=== PATIENT | male | born 1985 | race Caucasian/White ===

== ENCOUNTER 2024-08-06 20:12 | Emergency (ER) | payer OTHER, SELFPAY ==
[2024-08-06] VITALS (7 sets, daily range): BP systolic 124–174; BP diastolic 76–102; PULSE 73–109; RESP 13–26; TEMP 36.9; O2SAT 94–99; BMI 36.0
--- NOTE | 2024-08-06 20:29 | RAD_ITS ---
EXAM: EXAM DATE: 08/06/2024 8:49 pm PROCEDURE: TIBIA FIBULA 2 VIEWS CLINICAL HISTORY: ANKLE INJURY COMPARISON: None TECHNIQUE: Four views of the left tibia and fibula. FINDINGS: There is a complex fracture/dislocation of the left ankle. The distal tibia is medially displaced 2.2 cm from the talus with an acute fracture of the medial malleolus and separation of the distal tibiofibular syndesmosis. There is a highly comminuted fracture at the distal fibular shaft with a slight angular displacement, apex medial. There is no proximal tibial or fibular fracture. Soft tissue deformity and edema is present about the ankle. RAD/Tibia & Fibula 2 Views IMPRESSION: Complex fracture/dislocation of the left ankle with significant displacement, a s described above. Reading Location: [facility]
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
[2024-08-06] MEDS: Ondansetron 4 MG/2 ML Vial IV (20:54)
[2024-08-06] MEDS: morphine 8 MG/ML Syringe 6 MG IV ×4 (20:55→22:42)
[2024-08-06 21:01] LABS: Absolute Lymphocyte Count 2.92 X10^3/uL (0.83-4.51); Absolute Neutrophil Count 7.9 X10^3/uL (2.0-7.7); Basophil# 0.06 X10^3/uL; Basophil% 0.5 % (0-1); Eosinophil# 0.26 X10^3/uL; Eosinophils% 2.2 % (0-5); Hematocrit 43.7 % (40-54); Hemoglobin 15.1 g/dL (13.0-16.5); Lymphocyte # 2.92 X10^3/ul (0.83-4.51); Lymphocyte % 24.6 % (19-41); Mean Corp Hgb Conc 34.6 g/dL (32-36); Mean Corpuscular Hgb 29.5 pg (27.0-32.0); Mean Corpuscular Volume 85.5 fL (80-94); Mean Platelet Vol. 9.2 fl (6.2-12.0); Monocyte# 0.73 X10^3/uL; Monocyte% 6.2 % (0-10); NRBC Flagged by Analyzer 0 % (0-5); Neutrophil # 7.87 X10^3/uL (2.7-7.7); Neutrophil % 66.3 % (47-70); Platelet Count 256 K/mm3 (150-450); RBC Distribution Width SD 40.5 fl (35.1-43.9); Red Blood Count 5.11 M/mm3 (4.6-6.2); White Blood Count 11.9 K/mm3 (4.4-11.0)
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
--- NOTE | 2024-08-06 21:35 | RAD_ITS ---
PROCEDURE: ANKLE 2 VIEWS 08/06/2024 REASON FOR EXAM: FRACTURE POST REDUCTION TECHNIQUE: 2 views of the left ankle COMPARISON: 08/06/2024 FINDINGS: Improved alignment of the fracture/dislocation of the left ankle. Interval placement of a splint. RAD/Ankle 2 Views IMPRESSION: As above. Reading Location: [facility]
[2024-08-06 21:39] LABS: Anion Gap 15 (5-15); BUN 13 mg/dL (4-19); BUN/Creat Ratio 10.3 RATIO (10-20); Calcium,Total 9.1 mg/dL (7.6-11.0); Carbon Dioxide 21.7 mmol/L (21.0-32.0); Chloride 106 mmol/L (98-108); EST Glomerular Filtration Rate 73 (>60); Estimated Creatinine Clearance 98.29 ml/min (50-250); Glucose 157 mg/dL (70-99); Potassium 3.6 mmol/L (3.3-5.1); Sodium Level 142 mmol/L (133-145)
[2024-08-06] MEDS: Propofol 200 MG/20 ML Vial 60 MG IV (21:45)
[2024-08-06] MEDS: Propofol 200 MG/20 ML Vial 60 MG IV BOLUS (21:45)
== END 2024-08-06 23:12 | disposition home or self-care (01) ==
PROVIDERS: Emergency Provider Emergency Medicine; Visit Provider Emergency Medicine
DX: S82.52XA Displaced fracture of medial malleolus of left tibia, initial encounter for closed fracture (principal); S09.90XA Unspecified injury of head, initial encounter; S00.83XA Contusion of other part of head, initial encounter; S82.452A Displaced comminuted fracture of shaft of left fibula, initial encounter for closed fracture; V86.09XA Driver of other special all-terrain or other off-road motor vehicle injured in traffic accident, initial encounter
CPT/HCPCS: 27840; 70450; 73590; 73600; 73700; 80048; 85025; 96374; 96375; 96376; 99152; 99283; A4216; J2405

== ENCOUNTER 2024-08-12 06:02 | Day surgery (SDC) | payer OTHER, SELFPAY ==
[2024-08-12] VITALS (9 sets, daily range): BP systolic 111–152; BP diastolic 65–97; PULSE 92–109; RESP 16–20; TEMP 36.1–36.6; O2SAT 92–100; BMI 34.7
[2024-08-12] MEDS: 0.9% Normal Saline (1000mL) 1,000 ML 15 ML IV (06:34)
--- NOTE | 2024-08-12 06:42 | PRE.ANES_ITS ---
ASA Classification* ASA Classification ASA Classification: 2 Assessment & Plan Anesthesia* Anesthesia Assessment Anesthesia Assessment: Discussed sedation and/or anesthesia options, risks, benefits, and alternatives with patient/parents/legal guardian/POA. Questions invited. The patient/parents/legal guardian/POA seems to understand and agrees to proceed with anesthesia plan. Reviewed the physical assessment, medical history, allergy history and patient home medications list prior to surgery/procedure/anesthetic and documented any changes. Performed airway and anesthesia risk assessments. Anesthesia Type Anesthesia Type: General and Block (Patient consented for popliteal and adductor blocks.) History Source History Obtained from:: Patient and Chart Anesthesia Focused Assessment* Temperature: 97.1 F Pulse Rate: 93 Blood Pressure: 146/97 Respiratory Rate: 20 Pulse Ox: 98 Oxygen Delivery Method: Room Air Airway Assessment Mouth opens: >3 cm Mallampati Score: II Teeth Condition: Intact Neck Range of motion (ROM): Full ROM Focused Labs Anesthesia Preop lab: CBC WBC 11.9 K/mm3 (4.4-11.0) H 08/06/24 20:45 5 RBC 5.11 M/mm3 (4.6-6.2) 08/06/24 20:45 08/06/24 Hgb 15.1 g/dL (13.0-16.5) 08/06/24 20:45 08/06/24 Hct 43.7 % (40-54) 08/06/24 20:45 08/06/24 Plt Count 256 K/mm3 (150-450) 08/06/24 20:45 08/06/24 CHEMISTRY Potassium 3.6 mmol/L (3.3-5.1) 08/06/24 20:45 08/06/24 Sodium 142 mmol/L (133-145) 08/06/24 20:45 08/06/24 BUN 13 mg/dL (4-19) 08/06/24 20:45 08/06/24 Creatinine 1.30 mg/dL (0.70-1.20) H 08/06/24 20:45 Glucose 157 mg/dL (70-99) H 08/06/24 20:45 08/06/24 COAG Pre-Assessment Diagnosis/Proposed Procedure Planned Operative Procedure(s): ORIF LEFT ANKLE Anesthesia History 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 When Was Last Pacemaker Check QUESTION #4 FULL TEXT: You/Your Family Experience fever (hyperthermia) with Anesthesia Last Oral Intake Last Oral intake: Last Oral Intake NPO since 21:00 08/12/24 06:24 Meds taken in AM with sips of water? 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 Female No 08/09/24 11:15 HX of Motion Sickness No 08/09/24 11:15 HX of N/V After Surgery No 08/09/24 11:15 Non-Smoker Yes 08/09/24 11:15 Duration of Surgery greater Yes 08/09/24 11:15 than 60 minutes Number of Risk Factors 2 08/09/24 11:15 PONV Score Moderate Risk 08/09/24 11:15 Height & Weight Height & Weight: Anesthesia: Height & Weight Height 5 ft 10 in 08/12/24 06:24 Weight: 110 kg 08/12/24 06:24 Body Mass Index (BMI) 34.7 08/12/24 06:24 Respiratory Assessment Respiratory Assessment - local owner operator truck driver: Respiratory Tract Infection Hx - local owner operator truck driver Hx Respiratory Tract Infection No 08/09/24 11:15 STOP Sleep Apnea STOP Sleep Apnea - local owner operator truck driver: STOP Sleep Apnea - local owner 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 Has anyone observed you stop No 08/09/24 11:15 breathing during sleep? STOP Results Negative 08/09/24 11:15 QUESTION #5 FULL TEXT : Do you snore loudly (louder than talking or can be heard through closed doors)? 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 Specify any problems Hx of Preganancy in last 3 N/A 08/09/24 11:15 Months Nurse Filling Out Transfusion DSCHRIBER 08/09/24 11:15 & Questions: Date: 08/09/24 08/09/24 11:15 Time: 11:16 08/09/24 11:15 Patient unable to answer at this time (ie. 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 driver: /Reproductive Hx- local owner operator truck driver Hx Now No 08/09/24 11:15 Gestational Age (in weeks): EDC: Hx Hx Para Hx Section SAB No 08/09/24 11:15 Active Medications Active Medications: Current Medications Generic Name Dose Route Start Last Admin Trade Name Freq PRN Reason Stop Dose Admin Cefazolin Sodium 2 gm/ N/A 20 mls @ 400 mls/hr 08/12/24 07:30 IV 08/12/24 07:32 PREOP ONE Sodium Chloride 1,000 mls @ 15 mls/hr 08/12/24 06:10 08/12/24 06:34 IV 08/17/24 19:29 15 mls/hr .Q48H JENNIFER Administration PFSH Medical History Wears glasses Asthma Former smoker History of edema Closed left ankle fracture Ankle fracture Home Medications ?Medication ?Instructions ?Recorded ?Last Taken ?Type ibuprofen 200 mg tablet (Advil) 200 mg PO Q6H PRN pain 08/08/24 08/12/24 History meloxicam 7.5 mg tablet 7.5 mg PO BID PRN pain 5 day s #14 08/11/24 08/11/24 Rx tabs Allergy/AdvReac Type Severity Reaction Status Date / Time No Known Allergies Allergy Verified 08/12/24 06:22 Family History Father Hypertension Surgical History H/O vasectomy History of placement of ear tubes Social History Smoking Status: Never smoker Review of Systems (Anesthesia) ROS Narrative System reviewed and no additional complaints, except as documented.
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
[2024-08-12] MEDS: Cefazolin 2 GM in Syringe IV (07:50)
--- NOTE | 2024-08-12 08:05 | RAD_ITS ---
PROCEDURE: ANKLE 2 VIEWS 08/12/2024 REASON FOR EXAM: ORIF LT ANKLE TECHNIQUE: Intraoperative fluoroscopic spot images, 8 images FINDINGS: Fluoroscopy time 261.7 seconds Total dose 14.74 mGy Distally locked retrograde fibular intramedullary nail bridging comminuted distal fibula metadiaphysis fracture. 2 cannulated screws medial malleolus. Ankle mortise appears aligned. RAD/Ankle 2 Views IMPRESSION: Intraoperative fluoroscopic ORIF of left ankle fracture dislocation as above. Reading Location: [id number]
--- NOTE | 2024-08-12 10:02 | OP.PCM_ITS ---
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 Second Cook And Baker: michele Tasks completed by nursing home assistant: Retracting Additional financial administrative assistant?: No Type of Anesthesia: Block,Regional and General RN Documented Start/Stop Times: Operation Date: 08/12/24 07:30 Case Time Into Pre-Op 08/12/24 06:07 Anesthesia Start 08/12/24 07:39 Into Room 08/12/24 07:39 Procedure Start 08/12/24 08:06 Procedure End 08/12/24 09:58 Procedure Start Time: 08:06 Procedure Stop Time: 09:58 Select all DRAINS/GRAFTS/IMPLANTS that apply: Implanted device Implanted device details: arthrex fibular nail, screws, tightrope button x2 Estimated Blood Loss: 50 Specimen collected: No Description of surgery: Patient brought to the operating room theater. Placed supine on the table. All bony prominences padded. SCD on the nonoperative leg. Bump under left hip. Tourniquet applied left thigh appropriately padded. General anesthesia administered. IV Ancef administered prior to the start of the case. Lower extremity prepped and draped in the usual sterile fashion with chlorhexidine- based prep solution allowing over 3 minutes drying time prior to draping. Patient did have preoperative blisters at the anterior medial aspect of proximal tibia as well as medial and lateral ankle. These were protected throughout the case but some of them did leak fluid. Preoperative timeout performed to confirm the site patient the surgery. Began by addressing the fibula fracture this was a long comminuted fracture. I gauge the length using appropriate reduction of the rest the fracture as well as the ankle mortise as well as the dime sign and lining up the cortical fragments. I have placed the guidewire across the fracture site at the tip of the fibula to plan for the Arthrex fibular nail. I used the entry reamer fo llowed by the proximal reamer up to the largest size in diameter and length of the fibular nail. Passed the nail up across the fracture site to an appropriate depth distally. I then deployed the spines proximally. Then using the percutaneous guide I then placed 3 screws at the distal end of the nail. This achieved good length alignment and rotation of the fracture site as well as good alignment of the mortise. I did this percutaneously. I then turned my attention to the medial side. Again using percutaneous technique with guidewires passed 2 partially-threaded cancellous 4.0 millimeter screws from the Arthrex set these were the long partial thread made sure that the threads got across the fracture site. The medial malleolus was appropriately reduced followed by passing the guidewires that were co-linear on both AP and lateral x-rays. Drilled the proximal cortex and passed the screws 45 mm for the anterior screw and 40 mm for the posterior screw. Removed guide wires. This achieved good compression of the fracture site. Next I turned my attention back to the lateral side. I drilled the in the appropriate holes for the 2 syndesmosis buttons. I passed the buttons flipped o n the far cortex and then pulled sequentially on the 2 free ends and then tied over the button for placing 2 Arthrex tight ropes. I then did a stress test external rotation stress test as well as direct lateral pressure and very minimal talar tilt with good reduction of the syndesmosis stable syndesmosis and no lateral talar shift with the ankle in neutral. I then inserted the arthroscope through standard anterolateral and anteromedial arthroscopy portals. Did a full diagnostic arthroscopy of the ankle. The syndesmosis appeared appropriately reduced. Debrided the hematoma as well as synovitis from the joint. The talar dome appeared normal and appropriate. At the anterolateral aspect of the distal tibia there was a small cartilage lesion about 5 mm in width by approximately 1.2 cm from anterior to posterior more towards the anterolateral aspect of the distal tibia. I did gently debrided the surfaces they are made sure that there was vertical stable rim and then I used a awl to perform microfracture procedure there. Arthroscopy pictures taken throughout the case and saved onto the system I used the Dulce scope. Small posterior malleolus fracture treated non op. Tourniquet was only up for the arthroscopy portion of the procedure. Tourniquet let down meticulous hemostasis achieved. Wounds thoroughly irrigated using saline. Subcutaneous tissue closed with 2-0 Vicryl suture skin with andrew. Skin cleaned with wet and dry dressing followed application of Xeroform for the fracture blisters and for the incision sites as well as sterile gauze ABD sterile cast padding followed by a posterior fiberglass prefabricated splint overwrapped gently with nila wrap. Splint was allowed to harden patient woken up from a general acetic transfer off the operating table and taken to postanesthetic care unit in stable condition. All sponge needle instrument counts were correct no complications plan for the patient nonweightbearing crutches discharge home according to day surgery criteria. CPT codes 39114, 60948,?65090, 70163, 60042 Surgical Findings: as above Complications Complications: No Admit VTE Documentation VTE Present on Admission: No VTE Mechan Device Prophylaxis: SCD's VTE Pharm Prophylaxis ordered?: Yes
--- NOTE | 2024-08-12 10:14 | PCM.POST.ANE ---
Anesthesia: Postop Eval I Current Vital Signs Temperature: 97 F Pulse Rate: 109 Blood Pressure: 152/82 Respiratory Rate: 16 Pulse Ox: 99 Oxygen Delivery Method: Room Air Assessment Airway patent: Yes Spontaneous unlabored respirations: Yes Mental status: Awake and Calm nausea: No Vomiting: No Anesthesia Complication: No Fluid Hydration Crystalloid volume administer (ml): 1,600 Total IV fluid infused: 1,600 Progress Note Anesthesia document: Postop Eval 1 completed: Yes
--- NOTE | 2024-08-12 10:17 | EX.PCM.DISCH ---
Discharge Instructions Diet Discharge Diet: No restrictions Activity Discharge Activity: Use Crutches Ice area for (Minutes): 10 Weight Bearing Status: No weight bearing Keep extremity elevated above heart level: Operative Extremity Dressing / Incision Call your doctor if your incision/area has: Continuous Slow Oozing, Sudden Increased Bleeding, Increased Pain/ Swelling, Increased Redness, Foul Smelling Discharge and Swelling at the incision site Call your doctor if you observe: Fever of 101 or Higher, Coldness, Increased Pain and Numbness or Tingling Remove Dressing in: leave in place till F/U Cleanse incision/area with: Do not get Incision Wet Follow Up Care Please Follow Up With: Joselito Cassidy MD When: within 2 weeks Test Results: Test results from this visit will be discussed in further detail at your follow-up appointment, if applicable. Discharge Plan Admission Attending Provider: Joselito Cassidy Primary Care Provider: Care Physician,No Primary Instructions Print Language: Guyanese Discharge Orders/Prescriptions Prescriptions: New aspirin [Adult Low Dose Aspirin] 81 mg tablet,delayed release (DR/EC) 81 mg PO BID MDD 2 30 Days Qty: 60 0RF oxycodone-acetaminophen [Endocet] 5-325 mg tablet 1 tab PO Q4H MDD 6 PRN (Reason: pain) 5 Days Qty: 30 0RF No Action ibuprofen [Advil] 200 mg tablet 200 mg PO Q6H PRN (Reason: pain) meloxicam 7.5 mg tablet 7.5 mg PO BID MDD 2 PRN (Reason: pain) 5 Days Qty: 14 1RF Referrals / Follow Up: Joselito Cassidy MD [Med Staff - Active Staff] - Care Physician,No Primary [Primary Care Provider] - Disposition Disposition (needs filled in before D/C Order can be placed): Home, Self Care
--- NOTE | 2024-08-12 10:50 | POSTOPAN2_ITS ---
Anesthesia Postop Eval I Sum Postop Eval Completion status Anesthesia document: Postop Eval 1 completed: Yes Anesthesia Postop Eval I Summary Anesthesia Postop Eval I Summary: Anesthesia Postop Eval I: Assessment Summary Airway patent Yes 08/12/24 10:15 DIRECTOR OF PATIENT CARE.DBAK Spontaneous unlabored Yes 08/12/24 10:15 DIRECTOR OF PATIENT CARE.DBAK respirations Mental status Awake,Calm 08/12/24 10:15 DIRECTOR OF PATIENT CARE.DBAK nausea No 08/12/24 10:15 DIRECTOR OF PATIENT CARE.DBAK Vomiting No 08/12/24 10:15 DIRECTOR OF PATIENT CARE.DBAK Anesthesia Postop Eval I: Fluid Summary Crystalloid volume administer 1,600 08/12/24 10:15 DIRECTOR OF PATIENT CARE.DBAK (ml) Colloids volume administered ( ml) Blood Product volume administered (ml) Total IV fluid infused 1,600 08/12/24 10:15 DIRECTOR OF PATIENT CARE.DBAK Anesthesia Postop Eval I: Summary Notes Anesthesia Complication No 08/12/24 10:15 DIRECTOR OF PATIENT CARE.DBAK Anesthesia Complication Comment: Post-operative progress note Anesthesia: Postop Eval II Evaluation Mental status: Awake Pain Level: 1 nausea: No Vomiting: No
--- NOTE | 2024-08-12 10:50 | PCM.POSTANE2 ---
Anesthesia Postop Eval I Sum Postop Eval Completion status Anesthesia document: Postop Eval 1 completed: Yes Anesthesia Postop Eval I Summary Anesthesia Postop Eval I Summary: Anesthesia Postop Eval I: Assessment Summary Airway patent Yes 08/12/24 10:15 FILE CLERK DATA ENTRY.DBAK Spontaneous unlabored Yes 08/12/24 10:15 FILE CLERK DATA ENTRY.DBAK respirations Mental status Awake,Calm 08/12/24 10:15 FILE CLERK DATA ENTRY.DBAK nausea No 08/12/24 10:15 FILE CLERK DATA ENTRY.DBAK Vomiting No 08/12/24 10:15 FILE CLERK DATA ENTRY.DBAK Anesthesia Postop Eval I: Fluid Summary Crystalloid volume administer 1,600 08/12/24 10:15 FILE CLERK DATA ENTRY.DBAK (ml) Colloids volume administered ( ml) Blood Product volume administered (ml) Total IV fluid infused 1,600 08/12/24 10:15 FILE CLERK DATA ENTRY.DBAK Anesthesia Postop Eval I: Summary Notes Anesthesia Complication No 08/12/24 10:15 FILE CLERK DATA ENTRY.DBAK Anesthesia Complication Comment: Post-operative progress note Anesthesia: Postop Eval II Evaluation Mental status: Awake Pain Level: 1 nausea: No Vomiting: No
== END 2024-08-12 12:15 | disposition home or self-care (01) ==
LOC: SDC 06:03 → AC 06:05
PROVIDERS: Referring Provider Orthopaedic Surgery Sports Medicine; Visit Provider Orthopaedic Surgery Sports Medicine
PROC: (CPT 27814; principal; 2024-08-12 07:10)
DX: S82.842A Displaced bimalleolar fracture of left lower leg, initial encounter for closed fracture (principal); S93.432A Sprain of tibiofibular ligament of left ankle, initial encounter; V86.05XA Driver of 3- or 4- wheeled all-terrain vehicle (ATV) injured in traffic accident, initial encounter; M93.272 Osteochondritis dissecans, left ankle and joints of left foot; Z87.891 Personal history of nicotine dependence
CPT/HCPCS: 27814; 27829; 29891; 29897; 64447; 64445; 73600; 76000; C1713; J2405

== ENCOUNTER → 2024-09-20 | Outpatient (CLI) | payer OTHER, SELFPAY ==
[2024-09-20 18:12] LABS: Absolute Lymphocyte Count 2.99 X10^3/uL (0.83-4.51); Absolute Neutrophil Count 5.1 X10^3/uL (2.0-7.7); Basophil# 0.05 X10^3/uL; Basophil% 0.6 % (0-1); Eosinophil# 0.16 X10^3/uL; Eosinophils% 1.8 % (0-5); Hematocrit 44.9 % (40-54); Hemoglobin 14.9 g/dL (13.0-16.5); Lymphocyte # 2.99 X10^3/ul (0.83-4.51); Lymphocyte % 33.4 % (19-41); Mean Corp Hgb Conc 33.2 g/dL (32-36); Mean Corpuscular Volume 87.5 fL (80-94); Mean Platelet Vol. 9.7 fl (6.2-12.0); Monocyte# 0.61 X10^3/uL; Monocyte% 6.8 % (0-10); NRBC Flagged by Analyzer 0 % (0-5); Neutrophil # 5.12 X10^3/uL (2.7-7.7); Neutrophil % 57.2 % (47-70); Platelet Count 287 K/mm3 (150-450); RBC Distribution Width CV 12.5 % (11.6-14.6); RBC Distribution Width SD 40.1 fl (35.1-43.9); Red Blood Count 5.13 M/mm3 (4.6-6.2)
[2024-09-20 18:46] LABS: Anion Gap 13 (5-15); CRP < 3.00 mg/L (0.0-3.0); Carbon Dioxide 24.4 mmol/L (21.0-32.0); Chloride 103 mmol/L (98-108); Potassium 4.1 mmol/L (3.3-5.1); Sodium Level 140 mmol/L (133-145); Vitamin D,25 Hydroxy 18.3 ng/mL (30-100)
== END | disposition home or self-care (01) ==
LOC: MTLAB 16:33
PROVIDERS: Referring Provider Orthopaedic Surgery Sports Medicine; Visit Provider Orthopaedic Surgery Sports Medicine
DX: S82.892A Other fracture of left lower leg, initial encounter for closed fracture (principal); X58.XXXA Exposure to other specified factors, initial encounter
CPT/HCPCS: 36415; 80051; 82306; 84443; 85025; 86140

== ENCOUNTER → 2024-11-24 | Outpatient (CLI) | payer OTHER, SELFPAY ==
--- NOTE | 2024-11-24 13:53 | CT_ITS ---
PROCEDURE: EXTREMITY LOWER WITHOUT CONTRA 11/24/2024 REASON FOR EXAM: POST OP, EVAL HEALING TECHNIQUE: EXTREMITY LOWER WITHOUT CONTRA Coronal and Sagittal reconstruction series were provided. CONTRAST: None One or more dose reduction techniques were used (e.g., Automated exposure control, adjustment of the mA and/or kV according to patient size, use of iterative reconstruction technique). RADIATION DOSE SUMMARY: DLP: 523 mGycm COMPARISON: August 06, 2024 FINDINGS: There is screw fixation of the medial malleolus with complete cortication of the fracture in this region. Suture anchors are noted. There is brenton and screw fixation of the fibula which shows early cortical bridging of the fragments at the lateral margin of the hardware, with incomplete cortication. Alignment is maintained. The ankle mortise is not widened. Subcortical cyst formation is noted in the distal tibia and in the talus. There is diffuse osteopenia. The Achilles shadow and plantar fascia origins appear intact. There is no visible effusion. There is no visible atherosclerosis. CT/Extremity Lower without Contra IMPRESSION: There is screw fixation of the medial malleolus with complete cortication of th e fracture in this region. Suture anchors are noted. There is brenton and screw fixation of the fibula which shows early cortical bridgi ng of the fragments at the lateral margin of the hardware, with incomplete cortication. Alignment is maintained. Reading Location: [facility]
== END | disposition home or self-care (01) ==
LOC: CT 13:51
PROVIDERS: Referring Provider Orthopaedic Surgery Sports Medicine; Visit Provider Orthopaedic Surgery Sports Medicine
DX: S82.892A Other fracture of left lower leg, initial encounter for closed fracture (principal); X58.XXXA Exposure to other specified factors, initial encounter
CPT/HCPCS: 73700

== ENCOUNTER 2024-12-14 03:14 | Emergency (ER) | payer OTHER, SELFPAY ==
[2024-12-14 03:15] VITALS: BP 195/109; PULSE 81; RESP 18; TEMP 36.7; O2SAT 100; BMI 34.9
--- NOTE | 2024-12-14 03:29 | CT_ITS ---
PROCEDURE: ABDOMEN/PELVIS WITHOUT CONT 12/14/2024 REASON FOR EXAM: RIGHT FLANK PAIN TECHNIQUE: ABDOMEN/PELVIS WITHOUT CONT Noncontrast technique limits evaluation of the abdominal and pelvic viscera. Coronal and Sagittal reconstruction series were provided. One or more dose reduction techniques were used (e.g., Automated exposure control, adjustment of the mA and/or kV according to patient size, use of iterative reconstruction technique). RADIATION DOSE SUMMARY: CTDlvol: 14 mGy DLP: 815 mGycm COMPARISON: No FINDINGS: Clear lung bases. Normal heart size. Unremarkable liver, gallbladder, pancreas, spleen, adrenal glands, left kidney. The right kidney is swollen. Multiple renal stones measuring up to 2 mm. Mild hydronephrosis. 3 mm UVJ stone. Unremarkable bladder. Normal prostate. No retroperitoneal or pelvic adenopathy. No free air. Nondistended bowel. Normal appendix. Multiple diverticula. No acute large bowel findings. No acute abdominal wall findings. CT/Abdomen/Pelvis without Cont IMPRESSION: 3 mm right UVJ stone, mild hydronephrosis. Reading Location: [place] [id number]
[2024-12-14 03:40] LABS: Hematocrit 47.7 % (40-54); Hemoglobin 16.0 g/dL (13.0-16.5); Immature Granulocytes Count 0.030 X10^3/uL (0.0-0.0); Mean Corp Hgb Conc 33.5 g/dL (32-36); Mean Corpuscular Volume 85.0 fL (80-94); Mean Platelet Vol. 8.8 fl (6.2-12.0); NRBC Flagged by Analyzer 0 % (0-5); Platelet Count 302 K/mm3 (150-450); RBC Distribution Width CV 13.2 % (11.6-14.6); RBC Distribution Width SD 40.8 fl (35.1-43.9); Red Blood Count 5.61 M/mm3 (4.6-6.2); White Blood Count 11.9 K/mm3 (4.4-11.0)
[2024-12-14] MEDS: Ketorolac 30 MG/ML Syringe IV (03:42)
[2024-12-14] MEDS: 0.9% Normal Saline (1000mL) 1,000 ML 999 ML IV (03:42)
--- OUTSIDE RECORDS SUMMARY | 2024-12-14 03:53 | XMS RPT_ITS | CCD ---
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 Joselito Cassidy MD 10/11/24 1401. Part of today???s visit was documented by [ ], acting as scribe. CHELSEA BARRY is a 39 year old M here today for 9 weeks FU L ankle open reduction internal fixation, syndesmosis repair, arthroscopy, debridement, OCD microfracture. Patient has a delayed union. He has been low vitamin D now taking 10,000 IUs every 2 days per the physician that he found. He was contacted by the bone stimulator business development representative has not got that approved yet. Supplemental Info X-rays 3 views of the ankle show no significant change the alignment. Coding Level of Care Code Global Post Op Diagnoses Closed left ankle fracture S82.892A Assessment and Plan Assessment and Plan (1) Closed left ankle fracture: Status: Acute Plan: CHELSEA BARRY is a 39 year old M here today for 9 weeks FU L ankle open reduction internal fixation, syndesmosis repair, arthroscopy, debridement, OCD microfracture. Is complicated by what appears to be a developing delayed union. I would still like the patient to try to get the bone stimulator. We are treating his vitamin D deficiency. There is some slight tilt of the talus and he is some stiffness of the ankle he can start partial weightbearing here 50% and follow-up in 4 to 6 weeks time. Orders: Orders Ankle min 3 Views Today S82.469Y - Other fracture of left lower leg, initial encounter for closed fracture Ortho Exam General General: Yes no acute distress Neurologic: Yes alert and Yes oriented x3 Psychologic: Yes reasonable and appropriate Left Foot/Ankle Skin: Yes CDI, healed and Soft Tissue Swelling; No Ecchymosis or Erythema Exam: Yes Soft tissue swelling; No Ecchymosis, Erythema, tender to palpate - over fracture site, TTP Lateral Malleolus, TTP Medial Malleolus or TTP Deltoid Ligament Compartments: soft Dorsiflexion 0-20: 0 degrees Plantar Flexion 0-40: 20 degrees Motor: Ankle Dorsiflextion: 4, Ankle Plantar Flexion: 4, Ankle Eversion: 4, Ankle Inversion: 4 and EHL: 4 Sensation: Deep Peroneal Nerve: I, Superficial Peroneal Nerve: I, Tibial Nerve: I, Sural Nerve: I and Saphenous Nerve: I Pulses: Dorsalis Pedis: 2 ANKLE: Fracture blisters dried and healed. 10/11/24 1603 Date Joselito Cassidy MD Cosigner Signature: Date (if applicable) CC: Normal [facility] Absolute lymphocyte countOrd ered By: Joselito Cassidy on 09-20-2024 Lymphocytes Auto (Unsp spec) [#/Vol] 2.99 10*3/uL 0.83-4.51 [facility] Absolute neutrophil countOrd ered By: Joselito Cassidy on 09-20-2024 Neutrophils (Bld) [#/Vol] 5.1 10*3/uL 2.0-7.7 [facility] Anion gap in Serum or Plasma Ordered By: Joselito Cassidy on 09-20-2024 Anion gap [Moles/Vol] 13 mmol/L 09-22 [facility] Ankle min 3 Viewson 09-21-19 Ankle min 3 Views [facility] Imaging Services [address] [place] [address] Ankle min 3 Views MR#: [id number] Acct: [id number] Name: CHELSEA BARRY Rep #: [id number] : 1985 M 39 From: Glenn Low MD PCP: Care Physician,No Primary Status: DEP AMB Study: Ankle min 3 Views Date of Exam: 09/20/24 Exam# [id number] Ordering Dr: Joselito Cassidy MD PROCEDURE: ANKLE MIN 3 VIEWS 09/20/2024 REASON FOR EXAM: Fracture TECHNIQUE: 3 views of the left ankle COMPARISON: August 26, 2024 FINDINGS: Suture anchors and fixation screws are noted in the medial malleolus. There is brenton and screw fixation of the distal fibula with intact hardware and anatomic alignment, similar to the prior. No definite bridging callus is identified. RAD/Ankle min 3 Views IMPRESSION: Hardware in position with anatomic alignment. Reading Location: [facility] CC: Dr. Joselito Cassidy MD; No Primary Care Physician Chief Mechanical Officer: Signed Normal [facility] Automated lymphocyte count a s percentage of total leukocytesOrdered By: Joselito Cassidy on 09-20-2024 Lymphocytes/100 WBC Auto (Unsp spec) 33.4 % - [facility] Basophil percentageOrdered B y: Joselito Cassidy on 09-20-2024 Basophils/100 WBC (Bld) 0.6 % 0-1 [facility] CBC W/Diff, Automatedon 09-08 Absolute Lymph 2.99 X10 3/uL Normal 0.83-4.51 [facility] Comment on above: Performed By: #### L 506.1001, L501.9520, L501.6710, L501.5294, L100.0100 ####[facility] [address] [place], [address] Absolute Neut 5.1 X10 3/uL Normal 2.0-7.7 [facility] Comment on above: Performed By: #### L 506.1001, L501.9520, L501.6710, L501.5294, L100.0100 ####[facility] [address] [place], [address] Basophils/100 WBC (Bld) 0.6 % Normal 0-1 [facility] Comment on above: Performed By: #### L 506.1001, L501.9520, L501.6710, L501.5294, L100.0100 ####[facility] [address] [place], [address] Eosinophils/100 WBC (Bld) 1.8 % Normal 0-5 [facility] Comment on above: Performed By: #### L 506.1001, L501.9520, L501.6710, L501.5294, L100.0100 ####[facility] [address] [place], [address] Erythrocyte distribution width (RBC) [Ratio] 12.5 % Normal 11.6-14.6 [facility] Comment on above: Performed By: #### L 506.1001, L501.9520, L501.6710, L501.5294, L100.0100 ####[facility] [address] [place], [address] Hematocrit (Bld) [Volume fraction] 44.9 % Normal 40-54 [facility] Comment on above: Performed By: #### L 506.1001, L501.9520, L501.6710, L501.5294, L100.0100 ####[facility] [address] [place], [address] Hemoglobin (Bld) [Mass/Vol] 14.9 g/dL Normal 13.0-16.5 [facility] Comment on above: Performed By: #### L 506.1001, L501.9520, L501.6710, L501.5294, L100.0100 ####[facility] [address] [place], [address] IG% 0.200 Normal 0.0-0.9 [facility] Comment on above: Result Comment: IG% - Immature Granulocytes (promyelocytes, myelocytes and metamyelocytes) > 1% indicates that a LEFT SHIFT is Present. Performed By: #### L 506.1001, L501.9520, L501.6710, L501.5294, L100.0100 ####[facility] [address] [place], [address] Lymphocytes/100 WBC (Bld) 33.4 % Normal 19-41 [facility] Comment on above: Performed By: #### L 506.1001, L501.9520, L501.6710, L501.5294, L100.0100 ####[facility] [address] [place], [address] MCH (RBC) [Entitic mass] 29.0 pg Normal 27.0-32.0 [facility] Comment on above: Performed By: #### L 506.1001, L501.9520, L501.6710, L501.5294, L100.0100 ####[facility] [address] [place], [address] MCHC (RBC) [Mass/Vol] 33.2 g/dL Normal 32-36 [facility] Comment on above: Performed By: #### L 506.1001, L501.9520, L501.6710, L501.5294, L100.0100 ####[facility] [address] [place], [address] MCV (RBC) [Entitic vol] 87.5 fL Normal 80-94 [facility] Comment on above: Performed By: #### L 506.1001, L501.9520, L501.6710, L501.5294, L100.0100 ####[facility] [address] [place], [address] Monocytes/100 WBC (Bld) 6.8 % Normal 0-10 [facility] Comment on above: Performed By: #### L 506.1001, L501.9520, L501.6710, L501.5294, L100.0100 ####[facility] [address] [place], [address] Neutrophils/100 WBC (Bld) 57.2 % Normal 47-70 [facility] Comment on above: Performed By: #### L 506.1001, L501.9520, L501.6710, L501.5294, L100.0100 ####[facility] [address] [place], [address] Nucleated RBC (Bld) [#/Vol] 0 10*3/uL Normal 0-5 [facility] Comment on above: Performed By: #### L 506.1001, L501.9520, L501.6710, L501.5294, L100.0100 ####[facility] [address] [place], [address] Platelet mean volume (Bld) [Entitic vol] 9.7 fL Normal 6.2-12.0 [facility] Comment on above: Performed By: #### L 506.1001, L501.9520, L501.6710, L501.5294, L100.0100 ####[facility] [address] [place], [address] Platelets (Bld) [#/Vol] 287 10*3/uL Normal 150-450 [facility] Comment on above: Performed By: #### L 506.1001, L501.9520, L501.6710, L501.5294, L100.0100 ####[facility] [address] [place], [address] RBC (Bld) [#/Vol] 5.13 10*6/uL Normal 4.6-6.2 [facility] Comment on above: Performed By: #### L 506.1001, L501.9520, L501.6710, L501.5294, L100.0100 ####[facility] [address] [place], [address] RDW SD 40.1 fl Normal 35.1-43.9 [facility] Comment on above: Performed By: #### L 506.1001, L501.9520, L501.6710, L501.5294, L100.0100 ####[facility] [address] [place], [address] WBC (Bld) [#/Vol] 9.0 10*3/uL Normal 4.4-11.0 [facility] Comment on above: Performed By: #### L 506.1001, L501.9520, L501.6710, L501.5294, L100.0100 ####[facility] [address] [place], [address] CRPon 09-20-2024 C-REACTIVE PROT < 3.00 Normal 0.0-3.0 [facility] Comment on above: Performed By: #### L 506.1001, L501.9520, L501.6710, L501.5294, L100.0100 ####[facility] [address] [place], [address] Carbon dioxide, total [Moles /volume] in Central venous bloodOrdered By: Joselito Cassidy on 09-20-2024 CO2 [Moles/Vol] 24.4 mmol/L 21.0-32.0 [facility] Chloride assayOrdered By: Peewee Cassidy on 09-20-2024 Chloride [Moles/Vol] 103 mmol/L 98-108 [facility] Electrolyte Panelon 09-21-19 Chloride [Moles/Vol] 103 mmol/L Normal 98-108 [facility] Comment on above: Performed By: #### L 506.1001, L501.9520, L501.6710, L501.5294, L100.0100 ####[facility] [address] [place], [address] CO2 [Moles/Vol] 24.4 mmol/L Normal 21.0-32.0 [facility] Comment on above: Performed By: #### L 506.1001, L501.9520, L501.6710, L501.5294, L100.0100 ####[facility] [address] [place], [address] GAP 13 Normal 5-15 [facility] Comment on above: Performed By: #### L 506.1001, L501.9520, L501.6710, L501.5294, L100.0100 ####[facility] [address] [place], [address] Potassium [Moles/Vol] 4.1 mmol/L Normal 3.3-5.1 [facility] Comment on above: Performed By: #### L 506.1001, L501.9520, L501.6710, L501.5294, L100.0100 ####[facility] [address] [place], [address] Sodium [Moles/Vol] 140 mmol/L Normal 133-145 [facility] Comment on above: Performed By: #### L 506.1001, L501.9520, L501.6710, L501.5294, L100.0100 ####[facility] [address] [place], [address] Eosinophil percentageOrdered By: Joselito Cassidy on 09-20-2024 Eosinophils/100 WBC (Bld) 1.8 % 0-5 [facility] Erythrocyte distribution wid th ratioOrdered By: Joselito Cassidy on 09-20-2024 Erythrocyte distribution width (RBC) [Ratio] 12.5 % 11.6-14.6 [facility] Erythrocyte distribution wid th standard deviationOrdered By: Joselito Cassidy on 09-20-2024 Erythrocyte distribution width (RBC) [Ratio] 40.1 fl 35.1-43.9 [facility] Hematocrit Auto (Bld) [Volum e fraction]Ordered By: Joselito Cassidy on 09-20-2024 Hematocrit (Bld) [Volume fraction] 44.9 % 40-54 [facility] Hemoglobin measurementOrdere d By: Joselito Cassidy on 09-20-2024 Hemoglobin (Bld) [Mass/Vol] 14.9 g/dL 13.0-16.5 [facility] Immature granulocytes/100 WB C Auto (Bld)Ordered By: Joselito Cassidy on 09-20-2024 Immature granulocytes/100 WBC (Bld) 0.200 % 0.0-0.9 [facility] Comment on above: IG% - Immature Granu locytes (promyelocytes, myelocytes and metamyelocytes) > 1% indicates that a LEFT SHIFT is Present. MCV (mean corpuscular volume ) determinationOrdered By: Joselito Cassidy on 09-20-2024 MCV (RBC) [Entitic vol] 87.5 fL 80-94 [facility] Mean corpuscular hemoglobin (MCH) determinationOrdered By: Joselito Cassidy on 09-20-2024 MCH (RBC) [Entitic mass] 29.0 pg 27.0-32.0 [facility] Mean corpuscular hemoglobin concentration (MCHC) determinationOrdered By: Joselito Cassidy on 09-20-2024 MCHC (RBC) [Mass/Vol] 33.2 g/dL 32-36 [facility] Mean platelet volume determi nationOrdered By: Joselito Cassidy on 09-20-2024 Platelet mean volume (Bld) [Entitic vol] 9.7 fL 6.2-12.0 [facility] Monocyte percentageOrdered B y: Joselito Cassidy on 09-20-2024 Monocytes/100 WBC (Bld) 6.8 % 0-10 [facility] Neutrophil percentageOrdered By: Joselito Cassidy on 09-20-2024 Neutrophils/100 WBC (Bld) 57.2 % 47-70 [facility] Nucleated red blood cell per centageOrdered By: Joselito Cassidy on 09-20-2024 Nucleated RBC/100 WBC (Bld) [Ratio] 0 % 0-5 [facility] Orthopedic Visit Reporton Orthopedic Visit Report [facility] [address] [place] [address] [address] [place] [address] OFFICE VISIT Date of Service: 09/20/24 MR#: [id number] Acct: [id number] Name: CHELSEA BARRY Rep #: [id number] : 1985 Provider: Dr. Joselito barnhart MD Age/Sex: 39/M [place] [facility] [place]: Signed Intake Vital Signs 08/12/24 06:24 Height 5 ft 10 in Intake Visit Reasons: LEFT ANKLE Chief Complaint: post op left ankle Accompanied by: Self Is patient in pain?: No Allergies No Known Allergies Allergy (Verified 09/20/24 16:01) Medications ???Medication ???Instructions ???Recorded ???Confirmed ???Type NK 09/20/24 09/20/24 History PFSH Medical History Wears glasses Asthma Former smoker History of edema Closed left ankle fracture Ankle fracture Surgical History History of ankle surgery H/O vasectomy History of placement of ear tubes Family History Father Hypertension Social History Smoking Status: Never smoker HPI LEFT ANKLE Details: This documentation accurately reflects the service provided and the decisions made by me, Dr. Joselito Cassidy MD 09/20/24 3623. Part of today???s visit was documented by [ ], acting as scribe. CHELSEA BARRY is a 39 year old M here today for 6 weeks FU L ankle open reduction internal fixation, syndesmosis repair, arthroscopy, debridement, OCD microfracture. Patient overall doing well minimal pain has been working hard with physical therapy for gentle range of motion is using the crutches in the orthosis boot following the restrictions. Eats plenty of protein every day. Non-smoker. Supplemental Info X-rays 3 views taken today of the left ankle demonstrates no significant healing at either the fracture of the long comminuted segment of the fibula or at the medial malleolus. No significant change the alignment. No talar tilt noted. Coding Level of Care Code Global Post Op Diagnoses Closed left ankle fracture S82.892A Ankle fracture S82.899A Assessment and Plan Assessment and Plan (1) Closed left ankle fracture: Status: Acute Plan: CHELSEA BARRY is a 39 year old M here today for 6 weeks FU L ankle open reduction internal fixation, syndesmosis repair, arthroscopy, debridement, OCD microfracture. At this point the fracture is made really no attempt to heal on the radiographs patient does not have pain. He needs a workup for delayed union I have gone ahead and order blood work including electrolytes CBC CRP thyroid panel and vitamin D to try to assess for systemic causes like infection hormone problems electrolyte disturbances or other abnormalities that could be contributing to this delayed union beyond just the severity of the fracture and the fixation type. In addition I have ordered a bone stimulator to try to get on this early to stimulate and promote healing I have asked the patient to still be partial to nonweightbearing gentle range of motion discontinue physical therapy for now and follow-up in 3 weeks time. He understands no further questions or concerns. (2) Ankle fracture: Status: Acute Orders: Orders Ankle min 3 Views Today S82.892A - Other fracture of left lower leg, initial encounter for closed fracture, S82.899A - Other fracture of unspecified lower leg, initial encounter for closed fracture CBC W/Diff, Automated Today S82.892A - Other fracture of left lower leg, initial encounter for closed fracture, S82.899A - Other fracture of unspecified lower leg, initial encounter for closed fracture CRP Today S82.892A - Other fracture of left lower leg, initial encounter for closed fracture, S82.899A - Other fracture of unspecified lower leg, initial encounter for closed fracture Vitamin D,25 Hydroxy Today S82.892A - Other fracture of left lower leg, initial encounter for closed fracture, S82.899A - Other fracture of unspecified lower leg, initial encounter for closed fracture Electrolyte Panel Today S82.892A - Other fracture of left lower leg, initial encounter for closed fracture, S82.899A - Other fracture of unspecified lower leg, initial encounter for closed fracture Thyroid Stim Hormone (TSH) Today S82.892A - Other fracture of left lower leg, initial encounter for closed fracture, S82.899A - Other fracture of unspecified lower leg, initial encounter for closed fracture Ortho Exam General General: Yes no acute distress Neurologic: Yes alert and Yes oriented x3 Psychologic: Yes reasonable and appropriate Left Foot/Ankle Skin: Yes CDI, healed and Soft Tissue Swelling; No Ecchymosis or Erythema Exam: Yes Soft tissue swelling; No Ecchymosis, Erythema, tend (more content not included)... Normal [facility] Platelet countOrdered By: Peewee Cassidy on 09-20-2024 Platelets (Bld) [#/Vol] 287 10*3/uL 150-450 [facility] Potassium measurement (mass/ volume)Ordered By: Joselito Cassidy on 09-20-2024 Potassium (Unsp spec) [Mass/Vol] 4.1 mmol/L 3.3-5.1 [facility] RBC Auto (Bld) [#/Vol]Ordere d By: Joselito Cassidy on 09-20-2024 RBC (Bld) [#/Vol] 5.13 10*6/uL 4.6-6.2 [facility] Serum or plasma C reactive p rotein measurement (mass/volume)Ordered By: Joselito Cassidy on 09-20-2024 CRP [Mass/Vol] mg/L 0.0-3.0 [facility] Sodium levelOrdered By: Arnie Cassidy on 09-20-2024 Sodium [Moles/Vol] 140 mmol/L 133-145 [facility] TSH DL <= 0.005 mIU/L QnOrde red By: Joselito Cassidy on 09-20-2024 TSH Qn 1.720 uIU/mL 0.300-4.200 [facility] Thyroid Stim Hormone (TSH)on 09-20-2024 TSH 1.720 uIU/mL Normal 0.300-4.200 [facility] Comment on above: Performed By: #### L 506.1001, L501.9520, L501.6710, L501.5294, L100.0100 ####[facility] [address] [place], [place], [id number] Vitamin D,25 Hydroxyon 09-20 Vitamin D 25-OH 18.3 ng/mL Low 30-100 [facility] Comment on above: Result Comment: Eden min D Status Deficiency: <20 ng/mL (50nmol/L) Insufficiency: 20-30 ng/mL (50-75 nmol/L) Sufficiency: 30-100 ng/mL (75-250 nmol/L) Toxicity: >100 ng/mL (>250 nmol/L) Performed By: #### L 506.1001, L501.9520, L501.6710, L501.5294, L100.0100 ####[facility] [address] [place], [place], [id number] White blood cell (WBC) count Ordered By: Joselito Cassidy on 09-20-2024 WBC (Bld) [#/Vol] 9.0 10*3/uL 4.4-11.0 [facility] Inital Evaluation (1) - PTon 09-01-2024 Inital Evaluation (1) - PT [facility] Physical Therapy [facility] [place] [address] / REHABILITATION SERVICES INITIAL EVALUATION MR#: [id number] Acct: [id number] Name: CHELSEA BARRY Rep #: [id number] : 1985 39 From: Ulises Alegria DPT, OCS, CSCS Referring Dr.: Dr. Joselito Cassidy MD Status: R EG RCR Insurance: [employer] SELF [employer]Y [employer]URANCE Patient's Visit Information Visit Information Visit Information: CHELSEA BARRY is a 39 year old M referred to Physical Therapy by Dr. Joselito Cassidy MD with a diagnosis of closed L ankle fx, ORIF 08/12. Date of Evaluation: 09/01/24 Physical Therapist: Ulises Alegria DPT, OCS, CSCS Visit Plan Frequency: 2x /Week Duration: 2 Months Plan: 2x/week for 4-8 weeks Pt is NWB L with boot until f/u mid September with Ange) IE HEP: AROM L ankle 20x, seated heel toe raises x20, towel toe curls x 50, wall gastroc stretch 5sec x 10 all 3x/day with pics and HO Please treat until Mid September with STM to L foot and ankle for lymph/edema, PROM and mobs to L ankle for ROM, TB NWB strength L ankle. Once releaased, can progress to WB strength/propriocept ion and gait training. ice as needed. Subjective Subjective: Rolled side by side onto ankle and pinned L ankle. 4 weeks ago. Surgery was 08/12/24 had ORIF. Boot and NWB since, boot off at home. Works from home on computer and doing that job, off a little to pain meds. 3 weeks more until Mid September NWB L. Not painful in last week, maybe occasional pinch. Medial ankle up to 3/10. Sleep is OK for 5-6 hours then needs more tylenol. No boot at night. No exercises Basic ADLs OK, shower and dress OK. Incision closed up. using crutches and NWB or scooter. 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 Pain R medial ankle: Pain Intensity (Out of 10): 0 Pain Intensity Range: 0 and 3 Objective Objective: NWB L on crutches with boot on into PT. dons and doffs boot I, transfers chair and bed I. Ankle is wrapped and pt is without concerns and says healed up well. AROM L ankle -20 DF, 35 PF, 4 inv, 8 eversion, PROM only slightly better and limited by discomfort and tightness. Swelling is mild ot moderate today in L foot and ankle with palpable pulse pedally. sensation LE WNL to gross light touch B. strength 4- L ankle DF, PF, 3+ inv and eversion. R ankle is 5/5 strength adn 58 PF, 5 DF, 30 inv and 20 eversion. 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 Rehabilitation Potential: Good Anticipated Interventions Patient/Client Instruction: Educate patient on: Condition and Risk Factors For the Purpose of:: To decrease pain, To increase ROM, To improve nutrient delivery to tissue, To improve muscle performance and motor function, To increase tolerance to activity/condition/p osition and To improve gait and locomotor functions Therapeutic Exercise to Include: Strength training, Postural training, Flexibilty training, Gait and locomotor training, Passive ROM and Active ROM For the Purpose of:: To decrease pain, To increase ROM, To improve nutrient delivery to tissue, To increase tolerance to activity/condition/p osition and To improve gait and locomotor functions Manual Therapy Techniques to Include: Mobilization, Passive ROM and Soft tissue mobilization For the Purpose of:: To decrease pain, To increase ROM, To improve nutrient delivery to tissue, To improve muscle performance and motor function and To increase tolerance to activity/condition/p osition Cryotherapy (ice pack, ice massage): Yes For the Purpose of:: To decrease swelling/inflammatio n Text: Thank you for the opportunity to evaluate your patient. For Medicare and Medicare HMO plans, please review the plan of care and approve it. It will need to be FAXED BACK to us at [phone] for Medicare purposes. For Medicare only, by signing this I certify the plan of care. Please let me know if there are questions or concerns regarding this plan of care. Physician Signature: D ate: 09/01/24 5030 CC: Dr. Joselito Cassidy MD; No Primary Care P (more content not included)... Normal [facility] Ankle min 3 Viewson 08-27-19 Ankle min 3 Views [facility] Imaging Services [address] [place], [place] [address] Ankle min 3 Views MR#: [id number] Acct: [id number] Name: CHELSEA BARRY Rep #: [id number] : 1985 M 39 From: Michael Florian MD PCP: Care Physician,No Primary Status: DEP AMB Study: Ankle min 3 Views Date of Exam: 08/26/24 Exam# [id number] Ordering Dr: Joselito Cassidy MD PROCEDURE: ANKLE MIN 3 VIEWS 08/26/2024 REASON FOR EXAM: 2 WEEK FOLLOW UP POST OP TECHNIQUE: 3 views of the left ankle COMPARISON: 08/12/2024 and 08/06/2024 FINDINGS: Status post ORIF of left ankle previous fracture dislocation with cannulated screws at the medial malleolus, retrograde fibular intramedullary nail proximally locked bridges a comminuted fracture with hardware appearing intact without evidence of failure or perihardware lucency. Very mild lateral translation of the medial malleolus fragment in relation to the tibia is not significantly changed and asymmetry of the ankle mortise joint space with a slight tilt and narrowing at the lateral aspect of the joint compartment. No significant appearing callus formation identified at this time. Overlying skin andrew. RAD/Ankle min 3 Views IMPRESSION: Status post left ankle ORIF with hardware appearing intact as above. Persistent asymmetry of the tibiotalar joint space with a mild tilted appearance of the talus in relation to the tibia as above Reading Location: [id number] CC: Dr. Joselito Cassidy MD; No Primary Care Physician Chief Mechanical Officer: Signed Normal [facility] Orthopedic Visit Reporton Orthopedic Visit Report [facility] [address] [place] [address] [address] [place] [address] OFFICE VISIT Date of Service: 08/26/24 MR#: [id number] Acct: [id number] Name: CHELSEA BARRY Rep #: [id number] : 1985 Provider: Dr. Joselito barnhart MD Age/Sex: 39/M [place] [facility] [place]: Signed Intake Vital Signs 08/08/24 09:32 08/12/24 06:24 Height 5 ft 10 in 5 ft 10 in Intake Visit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 Phone: Start: 09-20-2024 End: 09-20-[address] Kaden Loomis MD -[facility] Start: 09-20-2024 End: 09-20-[address] Michele Tracy MD Work Phone: [facility] Work Phone: Start: 09-20-[address] Joselito medeiros MD -Physical Therapy Work Phone: Start: 09-20-2024 End: 09-20-2024 ambulatory [facility] Facility:[facility] Start: 08-26-2024 End: 08-26-[address] Joselito Cassidy MD -[facility] Work Phone: Start: 08-26-2024 End: 08-26-2024 ambulatory No Primary Care Physician Facility:[facility] Start: 08-15-2024 End: 08-15-[address] Joselito Cassidy MD -[facility] Work Phone: Start: 08-15-2024 End: 08-15-2024 ambulatory No Primary Care Physician Facility:[facility] Start: 08-12-2024 ambulatory [facility] Facility :[facility] Start: 08-12-2024 Non-patient / Non-visit Dr. Joselito aragon MD -[facility] Start: 08-12-2024 End: 08-12-2024 Admission to same day surgery center Dr. Joselito Cassidy MD -[facility] Start: 08-12-2024 End: 08-12-[address] Michele Tracy MD Work Phone: [facility] Work Phone: Start: 08-08-2024 End: 08-08-[address] Joselito Cassidy MD -[facility] Work Phone: Start: 08-08-2024 End: 08-08-2024 ambulatory Joselito [facility] Facility:[facility] Start: 08-06-2024 ambulatory [facility] Facility :[facility] Start: 08-06-2024 Non-patient / Non-visit Dr. Joselito aragon MD -[facility] Start: 08-06-2024 End: 08-06-2024 Emergency department patient visit Dr. Michele Tracy MD Work Phone: -Emergency Department Work Phone: Procedures Date Procedure Procedure Detail Performing Clinician Start: 11-24-2024 MRI of lower extremity Dr. Michele Tracy MD Work Phone: Start: 11-01-2024 X-ray of ankle, thre e or more views Dr. Michele Tracy MD Work Phone: Start: 10-11-2024 X-ray of ankle, thre e or more views Dr. Michele Tracy MD Work Phone: Start: 09-20-2024 Vitamin D, 25-hydrox y measurement Dr. Michele Tracy MD Work Phone: Comment on above: Vitamin D StatusDefi ciency: <20 ng/mL (50nmol/L)Insufficiency: 20-30 ng/mL (50-75 nmol/L)Sufficiency: 30-100 ng/mL (75-250 nmol/L)Toxicity: >100 ng/mL (>250 nmol/L) Start: 09-20-2024 X-ray of ankle, thre e or more views Dr. Michele Tracy MD Work Phone: Start: 08-26-2024 X-ray of ankle, thre e or more views Dr. Michele Tracy MD Work Phone: Start: 08-12-2024 Fluoroscopic guidance Олег Tracy MD Work Phone: Start: 08-12-2024 X-ray of ankle, two views Dr. Michele Tracy MD Work Phone: Start: 08-12-2024 Open reduction with internal fixation Dr. Michele Tracy MD Work Phone: Start: 08-06-2024 X-ray of ankle, two views Dr. Michele Tracy MD Work Phone: Start: 08-06-2024 MRI of lower extremity Dr. Michele Tracy MD Work Phone: Start: 08-06-[address] Michele Tracy MD Work Phone: Start: 08-06-2024 CT of head without contrast Dr. Michele Tracy MD Work Phone: Start: 08-06-2024 Plain X-ray of tibia and fibula Dr. Michele Tracy MD Work Phone: Plan of Treatment Date Care Activity Detail Author Start: 11-01-2024 X-ray of ankle, three or more views Ankle min 3 Views [facility] Start: 11-01-2024 XR Ankle GE 3 Views [facility] Start: 10-11-2024 X-ray of ankle, three or more views Ankle min 3 Views [facility] Start: 10-11-2024 XR Ankle GE 3 Views [facility] Start: 09-20-2024 X-ray of ankle, three or more views Ankle min 3 Views [facility] Start: 09-20-2024 XR Ankle GE 3 Views [facility] Start: 08-26-2024 Patient referral [facility] Work Phone: Start: 08-12-2024 Anes open proc bones lower leg/ankle/foot nos ANESTH LOWER LEG BONE SURG [facility] Start: 08-12-2024 Arthroscopy ankle surgical debridement limited ANKLE ARTHROSCOPY/SURGERY [facility] Start: 08-12-2024 Arthrs ankle exc ostchndrl dfct w/drlg dfct ANKLE ARTHROSCOPY/SURGERY [facility] Start: 08-12-2024 Injection aa&/strd femoral nerve NJX AA&/STRD FEMORAL NRV G [facility] Start: 08-12-2024 Injection aa&/strd sciatic nerve NJX AA&/STRD SCIATIC NRV [facility] Start: 08-12-2024 Open treatment bimalleolar ankle fracture TREATMENT OF ANKLE FRACTURE [facility] Start: 08-12-2024 Open tx distal tibiofibular joint disruption TREAT LOWER LEG JOINT [facility] Start: 08-12-2024 Patient discharge [facility] Start: 08-12-2024 Application of ice collar, cap or bag [facility] Start: 08-12-2024 Assessment of risk of venous thromboembolism [facility] Start: 08-12-2024 Catheterization of vein [facility] Start: 08-12-2024 Continuous positive airway pressure ventilation treatment [facility] Start: 08-12-2024 Elevation of affected extremity [facility] Start: 08-12-2024 Following clinical pathway protocol [facility] Start: 08-12-2024 Gait training procedure [facility] Start: 08-12-2024 Incentive spirometry [facility] Start: 08-12-2024 Introduction of urinary catheter [facility] Start: 08-12-2024 Vital signs measurements [facility] Start: 08-12-2024 [facility] Start: 08-12-2024 X-ray of ankle, two views Ankle 2 Views [facility] Start: 08-12-2024 XR Ankle 2 Views [facility] Start: 08-06-2024 [facility] Start: 08-06-2024 Closed tx ankle dislocation w/o anesthesia TREAT ANKLE DISLOCATION [facility] C reactive protein [Mass/volume] in Serum or Plasma [facility] CBC W Auto Different ial panel - Blood [facility] Electrolytes 1997 pa tricia - Serum or Plasma [facility] MR Lower extremity W O contrast [facility] Patient Education ED Ankle Dislo cation (Adult) ED Ankle Fracture ED Head Injury (Adult) [facility] Work Phone: Patient referral [facility] Work Phone: Thyroid stimulating hormone measurement [facility] Vitamin D, 25-hydrox y measurement [facility] Payers Date Payer Category Payer Self-pay 2024 Private Health Insurance [id number] 2007 Unknown [id number] Unknown [id number] 2.16.8 [id number] Unknown [id number] 2.16.8 [id number] Unknown [id number] 2.16.8 40.1.814889.3.579.2.462 Unknown [id number] 2.16.8 40.1.892142.3.579.2.462 Unknown [id number] 2.16.8 40.1.069338.3.579.2.462 Unknown [id number] 2.16.8 40.1.376598.3.579.2.462 Unknown [id number] 2.16.8 40.1.991351.3.579.2.462 Unknown [id number] 2.16.8 40.1.598750.3.579.2.462 Unknown [id number] 2.16.8 40.1.891637.3.579.2.462 Unknown [id number] 2.16.8 40.1.091219.3.579.2.462 Unknown [id number] 2.16.8 40.1.604976.3.579.2.462 Unknown [id number] 2.16.8 40.1.554390.3.579.2.462 Unknown [id number] 2.16.8 40.1.628841.3.579.2.462 Unknown [id number] 2.16.8 40.1.919347.3.579.2.462 Unknown [id number] 2.16.8 40.1.862478.3.579.2.462 Unknown [id number] 2.16.8 40.1.310647.3.579.2.462 Unknown [id number] 2.16.8 40.1.280840.3.579.2.462 Unknown [id number] 2.16.8 40.1.040476.3.579.2.462 Social History Date Type Detail Facility Start: 08-06-2024 Tobacco smoking stat [facility] Never smoked tobacco (finding) [facility] Start: 08-06-2024 End: 08-12-2024 Sex Male (finding) [facility] Start: 1985 Sex Assigned At Male [facility] Start: 08-09-2024 Tobacco smoking stat [facility] Ex-smoker (finding) [facility] Medical Equipment Procedure Code Equipment Code Equipment Original Text Equipment Identifier Dates ORIF, ankle 3.0 Cancellous S crew, stainless steel FDA Start: 08-12-2024 ORIF, ankle 3.0 Cancellous S crews stainless steel FDA Start: 08-12-2024 ORIF, ankle 4 mm Long thread cannulated screw FDA Start: 08-12-2024 ORIF, ankle Ligament reconst ruction instrument set, reusable [id number] FDA Start: 08-12-2024 ORIF, ankle Ligament reconst ruction instrument set, reusable ()[id number] FDA Start: 08-12-2024 ORIF, ankle Arthrodesis intramedullary nail, non-distracting ()[id number] FDA Start: 08-12-2024 ORIF, ankle 3.0 Cancellous S crew, stainless steel FDA Start: 08-12-2024 ORIF, ankle 3.0 Cancellous S crews stainless steel FDA Start: 08-12-2024 ORIF, ankle 4 mm Long thread cannulated screw FDA Start: 08-12-2024 ORIF, ankle 3.0 Cancellous S crew, stainless steel FDA Start: 08-12-2024 ORIF, ankle 3.0 Cancellous S crews stainless steel FDA Start: 08-12-2024 ORIF, ankle 4 mm Long thread cannulated screw FDA Start: 08-12-2024 ORIF, ankle 3.0 Cancellous S crew, stainless steel FDA Start: 08-12-2024 ORIF, ankle 3.0 Cancellous S crews stainless steel FDA Start: 08-12-2024 ORIF, ankle 4 mm Long thread cannulated screw FDA Start: 08-12-2024 ORIF, ankle 3.0 Cancellous S crew, stainless steel FDA Start: 08-12-2024 ORIF, ankle 3.0 Cancellous S crews stainless steel FDA Start: 08-12-2024 ORIF, ankle 4 mm Long thread cannulated screw FDA Start: 08-12-2024 ORIF, ankle 3.0 Cancellous S crew, stainless steel FDA Start: 08-12-2024 ORIF, ankle 3.0 Cancellous S crews stainless steel FDA Start: 08-12-2024 ORIF, ankle 4 mm Long thread cannulated screw FDA Start: 08-12-2024 ORIF, ankle 3.0 Cancellous S crew, stainless steel FDA Start: 08-12-2024 ORIF, ankle 3.0 Cancellous S crews stainless steel FDA Start: 08-12-2024 ORIF, ankle 4 mm Long thread cannulated screw FDA Start: 08-12-2024 ORIF, ankle 3.0 Cancellous S crew, stainless steel FDA Start: 08-12-2024 ORIF, ankle 3.0 Cancellous S crews stainless steel FDA Start: 08-12-2024 ORIF, ankle 4 mm Long thread cannulated screw FDA Start: 08-12-2024 ORIF, ankle 3.0 Cancellous S crew, stainless steel FDA Start: 08-12-2024 ORIF, ankle 3.0 Cancellous S crews stainless steel FDA Start: 08-12-2024 ORIF, ankle 4 mm Long thread cannulated screw FDA Start: 08-12-2024 Goals Date Patient Goal Desired Activity /State Mental Status Date Assessment Result Facility 08-12-2024 Cognitive function Voice/Name;Touch/Shaki ng [facility] Work Phone: 08-06-2024 Cognitive function Awake;Alert;A ppropriate;Fol lows Commands [facility] Work Phone: Clinical Notes 08-06-2024 to 11-28-2024 Note Date & Type Note Facility 11-28-2024 Radiology Diagnostic study note [facility] Imaging Services [address] [place], [place] [address] Extremity Lower without Contra MR#: [id number] Acct: [id number] Name: CHELSEA BARRY Rep #: [id number] : 1985 M 39 From: Alejandro Low MD PCP: Care Physician,No Primary Status: REG CLI Study:Extremity Lower without Contra Date of Exam: 11/24/24 Exam# [id number] Ordering Dr: Joselito Cassidy MD PROCEDURE: EXTREMITY LOWER WITHOUT CONTRA 11/24/2024 REASON FOR EXAM: POST OP, EVAL HEALING TECHNIQUE: EXTREMITY LOWER WITHOUT CONTRA Coronal and Sagittal reconstruction series were provided. CONTRAST: None One or more dose reduction techniques were used (e.g., Automated exposure control, adjustment of the mA and/or kV according to patient size, use of iterative reconstruction technique). RADIATION DOSE SUMMARY: DLP: 523 mGycm COMPARISON: August 06, 2024 FINDINGS: There is screw fixation of the medial malleolus with complete cortication of thefracture in this region. Suture anchors are noted. There is brenton and screw fixation of the fibula which shows early corticalbridging of the fragments at the lateral margin of the hardware, with incomplete cortication. Alignment is maintained. The ankle mortise is not widened. Subcortical cyst formation is noted in the distal tibia and in the talus. There is diffuse osteopenia. The Achilles shadow and plantar fascia origins appear intact. There is no visible effusion. There is no visible atherosclerosis. CT/Extremity Lower without Contra IMPRESSION: There is screw fixation of the medial malleolus with complete cortication of thefracture in this region. Suture anchors are noted. There is brenton and screw fixation of the fibula which shows early cortical bridging of the fragments at the lateral margin of the hardware, with incomplete cortication. Alignment is maintained. Reading Location: [facility] CC: Dr. Joselito Cassidy MD; No Primary Care Physician ~ Chief Mechanical Officer: Signed [facility] 11-01-2024 Progress note [facility] 11-01-2024 Progress note Note Date/Time November 01, 2024 3:47pm [facility] [address] [place] [address] OFFICE VISIT Date of Service: 11/01/24 MR#: [id number] Acct: [id number] Name: CHELSEA BARRY Rep #: [id number] : 1985 Provider: Dr. Arnie Cassidy MD Age/Sex: 39/M [place] [facility] [place] Status: Signed Intake Vital Signs 08/12/24 06:24 11/01/24 15:26 Height 5 ft 10 in 5 ft 10 in Weight: 230 lb BMI 33.0 Intake Visit Reasons: LEFT ANKLE Chief Complaint: Left ankle follow up Accompanied by: Self Is patient in pain?: No Allergies No Known Allergies Allergy (Verified 11/01/24 15:28) Medications ?Medication ?Instructions ?Recorded ?Confirmed ?Type cholecalciferol (vitamin D3) 10 10 mcg PO QDAY 5 11/01/24 History mcg (400 unit) capsule Have you fallen in the past year?: No PFSH Medical History Wears glasses Asthma Former smoker History of edema Closed left ankle fracture Ankle fracture Surgical History History of ankle surgery H/O vasectomy History of placement of ear tubes Family History Father Hypertension Social History Smoking Status: Never smoker HPI LEFT ANKLE Details: This documentation accurately reflects the service provided and the decisions made by me, Dr. Joselito Cassidy MD 11/01/24 1027. Part of today?s visit was documented by [ ], acting as scribe. CHELSEA BARRY is a 39 year old M here today for almost 3 months FU L ankle open reduction internal fixation, syndesmosis repair, arthroscopy, debridement, OCD microfracture. Overall doing well he is leaving on a trip going on a road trip in about a week. He is able to put more weight on the ankle now walking just with 1 crutch putting about 50% weight on there no pain in the ankle Supplemental Info Repeat x-rays 3 views left ankle demonstrate some radiographic union of the medial malleolus but still multiple free-floating fragments of the lateral malleolus area of comminution no change the alignment of the mortise. Coding Level of Care Code Global Post Op Diagnoses Closed left ankle fracture S82.892A Ankle fracture S82.899A Assessment and Plan Assessment and Plan (1) Closed left ankle fracture: Status: Acute Plan: CHELSEA BARRY is a 39 year old M here today for almost 3 months FU L ankle open reduction internal fixation, syndesmosis repair, arthroscopy, debridement, OCD microfracture. The patient is doing well he is taking his vitamin D. It soundslike he will not get approved until 3 months postoperatively for the bone stimulator. He can gradually increase amount of weightbearing over the next 3 to 4 weeks and gradually work out of and discontinue the orthosis but I also ordered a CT scan as I am concerned for the delayed union here he can get that when he gets back from his trip in about 3 or 4 weeks and then follow-up in the office at that time to review. (2) Ankle fracture: Status: Acute Orders: Orders Ankle min 3 Views Today S82.892A - Other fracture of left lower leg, initial encounter for closed fracture, S82.899A - Other fracture of unspecified lower leg, initial encounter for closed fracture Extremity Lower without Contra Today S82.892A - Other fracture of left lower leg, initial encounter for closed fracture, S82.899A - Other fracture of unspecified lower leg, initial encounter for closed fracture Clinical Quality Measures Falls Risk Screening/Assistive Devices Have you fallen in the past year?: No Ortho Exam General General: Yes no acute distress Neurologic: Yes alert and Yes oriented x3 Psychologic: Yes reasonable and appropriate Left Foot/Ankle Skin: Yes CDI and healed; No Ecchymosis, Soft Tissue Swelling or Erythema Exam: No Ecchymosis, Soft tissue swelling, Erythema, tender to palpate - over fracture site, TTP Lateral Malleolus, TTP Medial Malleolus or TTP Deltoid Ligament Compartments: soft Dorsiflexion 0-20: 0 degrees Plantar Flexion 0-40: 30 degrees Motor: Ankle Dorsiflextion: 5, Ankle Plantar Flexion: 5, Ankle Eversion: 5, Ankle Inversion: 5 and EHL: 5 Sensation: Deep Peroneal Nerve: I, Superficial Peroneal Nerve: I, Tibial Nerve: I, Sural Nerve: I and Saphenous Nerve: I Pulses: Dorsalis Pedis: 2 ANKLE: Fracture blisters dried and healed. 11/01/24 9371 <Electronically signed by Joselito reed MD> Date _ Joselito Cassidy MD [facility] Signature: Date (if applicable) CC: ~ [facility] Work Phone: 1(215) 392-109606-03-2025 Progress [facility] [address] [place] [address] OFFICE VISIT Date of Service: 10/11/24 MR#: [id number] Acct: [id number] Name: CHELSEA BARRY Rep #: [id number] : 1985 Provider: Dr. Arnie Cassidy MD Age/Sex: 39/M [place] [facility] [place] Status: Signed Intake Vital Signs 08/12/24 06:24 Height 5 ft 10 in Intake Visit Reasons: LEFT ANKLE Chief Complaint: post op left ankle Accompanied by: Self Is patient in pain?: No Allergies No Known Allergies Allergy (Verified 10/11/24 15:31) Medications ?Medication ?Instructions ?Recorded ?Confirmed ?Type NK 09/20/24 10/11/24 History PFSH Medical History Wears glasses Asthma Former smoker History of edema Closed left ankle fracture Ankle fracture Surgical History History of ankle surgery H/O vasectomy History of placement of ear tubes Family History Father Hypertension Social History Smoking Status: Never smoker HPI LEFT ANKLE Details: This documentation accurately reflects the service provided and the decisions made by me, Dr. Lea MD 10/11/24 1401. Part of today?s visit was documented by [ ], acting as scribe. CHELSEA BARRY is a 39 year old M here today for 9 weeks FU L ankle open reduction internal fixation, syndesmosis repair, arthroscopy, debridement, OCD microfracture. Patient has a delayed union. He hasbeen low vitamin D now taking 10,000 IUs every 2 days per the physician that he found. He was contacted by the bone stimulator business development representative has not got that approved yet. Supplemental Info X-rays 3 views of the ankle show no significant change the alignment. Coding Level of Care Code Global Post Op Diagnoses Closed left ankle fracture S82.892A Assessment and Plan Assessment and Plan (1) Closed left ankle fracture: Status: Acute Plan: CHELSEA BARRY is a 39 year old M here today for 9 weeks FU L ankle open reduction internal fixation, syndesmosis repair, arthroscopy, debridement, OCD microfracture. Is complicated by what appears to be a developing delayed union. I would still like the patient to try to get the bone stimulator. We are treating his vitamin D deficiency. There is some slight tilt of the talus and he is some stiffness of the ankle he can start partial weightbearing here 50% and follow-up in 4 to 6 weeks time. Orders: Orders Ankle min 3 Views Today S89.891X - Other fracture of left lower leg, initial encounter for closed fracture Ortho Exam General General: Yes no acute distress Neurologic: Yes alert and Yes oriented x3 Psychologic: Yes reasonable and appropriate Left Foot/Ankle Skin: Yes CDI, healed and Soft Tissue Swelling; No Ecchymosis or Erythema Exam: Yes Soft tissue swelling; No Ecchymosis, Erythema, tender to palpate - over fracture site, TTP Lateral Malleolus, TTP Medial Malleolus or TTP Deltoid Ligament Compartments: soft Dorsiflexion 0-20: 0 degrees Plantar Flexion 0-40: 20 degrees Motor: Ankle Dorsiflextion: 4, Ankle Plantar Flexion: 4, Ankle Eversion: 4, Ankle Inversion: 4 and EHL: 4 Sensation: Deep Peroneal Nerve: I, Superficial Peroneal Nerve: I, Tibial Nerve: I, Sural Nerve: I and Saphenous Nerve: I Pulses: Dorsalis Pedis: 2 ANKLE: Fracture blisters dried and healed. 10/11/24 1603 n MD> Date _ Joselito Cassidy MD Cosign Signature: Date (if applicable) CC: ~ [facility]06-03-2025 Progress note Author Joselito Cassidy [facility] Note Date/Time October 11, 2024 4:03p m [facility] [address] [place] [address] [address] [place] [address] OFFICE VISIT Date of Service: 10/11/24 MR#: [id number] Acct: [id number] Name: CHELSEA BARRY Rep #: [id number] : 1985 Provider: Dr. Arnie Cassidy MD Age/Sex: 39/M [place] [facility] [place] Status: Signed Intake Vital Signs 08/12/24 06:24 Height 5 ft 10 in Intake Visit Reasons: LEFT ANKLE Chief Complaint: post op left ankle Accompanied by: Self Is patient in pain?: No Allergies No Known Allergies Allergy (Verified 10/11/24 15:31) Medications ?Medication ?Instructions ?Recorded ?Confirmed ?Type NK 09/20/24 10/11/24 History PFSH Medical History Wears glasses Asthma Former smoker History of edema Closed left ankle fracture Ankle fracture Surgical History History of ankle surgery H/O vasectomy History of placement of ear tubes Family History Father Hypertension Social History Smoking Status: Never smoker HPI LEFT ANKLE Details: This documentation accurately reflects the service provided and the decisions made by me, Dr. Joselito Cassidy MD 10/11/24 1401. Part of today?s visit was documented by [ ], acting as scribe. CHELSEA BARRY is a 39 year old M here today for 9 weeks FU L ankle open reduction internal fixation, syndesmosis repair, arthroscopy, debridement, OCD microfracture. Patient has a delayed union. He has been low vitamin D now taking 10,000 IUs every 2 days per the physician that he found. He was contacted by the bone stimulator business development representative has not got that approved yet. Supplemental Info X-rays 3 views of the ankle show no significant change the alignment. Coding Level of Care Code Global Post Op Diagnoses Closed left ankle fracture S82.892A Assessment and Plan Assessment and Plan (1) Closed left ankle fracture: Status: Acute Plan: CHELSEA BARRY is a 39 year old M here today for 9 weeks FU L ankle open reduction internal fixation, syndesmosis repair, arthroscopy, debridement, OCD microfracture. Is complicated by what appears to be a developing delayed union. I would still like the patient to try to get the bone stimulator. We are treating his vitamin D deficiency. There is some slight tilt of the talus and he is some stiffness of the ankle he can start partial weightbearing here 50% and follow-up in 4 to 6 weeks time. Orders: Orders Ankle min 3 Views Today S89.649L - Other fracture of left lower leg, initial encounter for closed fracture Ortho Exam General General: Yes no acute distress Neurologic: Yes alert and Yes oriented x3 Psychologic: Yes reasonable and appropriate Left Foot/Ankle Skin: Yes CDI, healed and Soft Tissue Swelling; No Ecchymosis or Erythema Exam: Yes Soft tissue swelling; No Ecchymosis, Erythema, tender to palpate - over fracture site, TTP Lateral Malleolus, TTP Medial Malleolus or TTP Deltoid Ligament Compartments: soft Dorsiflexion 0-20: 0 degrees Plantar Flexion 0-40: 20 degrees Motor: Ankle Dorsiflextion: 4, Ankle Plantar Flexion: 4, Ankle Eversion: 4, Ankle Inversion: 4 and EHL: 4 Sensation: Deep Peroneal Nerve: I, Superficial Peroneal Nerve: I, Tibial Nerve: I, Sural Nerve: I and Saphenous Nerve: I Pulses: Dorsalis Pedis: 2 ANKLE: Fracture blisters dried and healed. 10/11/24 1603 <Electronically signed by Joselito reed MD> Date _ Joselito Cassidy MD Cosigner Signature: Date (if applicable) CC: ~ [facility] Work Phone: 1(575) 234-422604-04-2025 Discharge summary Author Joselito Cassidy [facility] Note Date/Time August 12, 2024 10:[address] [place] [address] System Medical Records Department [address] [place] [address] Instructions for Home/Discharge Instructions 08/12/24 1017 MR#: [id number] Acct: [id number] Name: CHELSEA BARRY Rep #:[id number] : 1985 39 From: Joselito Cassidy MD PCP: Care Physician,No Primary Status :[facility] Discharge Instructions Diet Discharge Diet: No restrictions Activity Discharge Activity: Use Crutches Ice area for (Minutes): 10 Weight Bearing Status: No weight bearing Keep extremity elevated above heart level: Operative Extremity Dressing / Incision Call your doctor if your incision/area has: Continuous Slow Oozing, Sudden Increased Bleeding, Increased Pain/ Swelling, Increased Redness, Foul Smelling Discharge and Swelling at the incision site Call your doctor if you observe: Fever of 101 or Higher, Coldness, Increased Pain and Numbness or Tingling Remove Dressing in: leave in place till F/U Cleanse incision/area with: Do not get Incision Wet Follow Up Care Please Follow Up With: Joselito Cassidy MD When: within 2 weeks Test Results: Test results from this visit will be discussed in further detail at your follow- up appointment, if applicable. Discharge Plan Admission Attending Provider: Joselito Cassidy Primary Care Provider: Care Physician,No Primary Instructions Print Language: Citizen Of [place] Discharge Orders/Prescriptions Prescriptions: New aspirin [Adult Low Dose Aspirin] 81 mg tablet,delayed release (DR/EC) 81 mg PO BID MDD 2 30 Days Qty: 60 0RF oxycodone-acetaminophen [Endocet] 5-325 mg tablet 1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 Joselito Cassidy MD Other Provider Active Start: August 12, 2024 Team Status: Inactive Member Role Status Dates No Primary Care Physician Primary Care Provider Active Start: August 15, 2024 End: August 15, 2024 No Primary Care Physician Referring Provider Active Start: August 15, 2024 End: August 15, 2024 Joselito Cassidy MD Attending Provider Active St art: August 15, 2024 End: August 15, 2024 Team Status: Inactive Member Role Status Dates No Primary Care Physician Primary Care Provider Active Start: August 26, 2024 End: August 26, 2024 No Primary Care Physician Referring Provider Active Start: August 26, 2024 End: August 26, 2024 Joselito Cassidy MD Attending Provider Active St art: August 26, 2024 End: August 26, 2024 Team Status: Inactive Member Role Status Dates No Primary Care Physician Primary Care Provider Active Start: August 26, 2024 End: August 26, 2024 Dr. Kaden Loomis MD Attending Provider Active S tart: August 26, 2024 End: August 26, 2024 Team Status: Active Member Role Status Dates No Primary Care Physician Primary Care Provider Active Start: September 20, 2024 Joselito Cassidy MD Attending Provider Active St art: September 20, 2024 Joselito Cassidy MD Referring Provider Active St art: September 20, 2024 Team Status: Active Member Role Status Dates No Primary Care Physician Primary Care Provider Active Start: September 20, 2024 No Primary Care Physician Referring Provider Active Start: September 20, 2024 Joselito Cassidy MD Attending Provider Active St art: September 20, 2024 Team Status: Inactive Member Role Status Dates No Primary Care Physician Primary Care Provider Active Start: September 20, 2024 End: September 20, 2024 Dr. Kaden Loomis MD Attending Provider Active S tart: September 20, 2024 End: September 20, 2024 Team Status: Inactive Member Role Status Dates No Primary Care Physician Primary Care Provider Active Start: September 20, 2024 End: September 20, 2024 No Primary Care Physician Referring Provider Active Start: September 20, 2024 End: September 20, 2024 Joselito Cassidy MD Attending Provider Active St art: September 20, 2024 End: September 20, 2024 Team Status: Inactive Member Role Status Dates No Primary Care Physician Primary Care Provider Active Start: September 20, 2024 End: September 20, 2024 Joselito Cassidy MD Attending Provider Active St art: September 20, 2024 End: September 20, 2024 Joselito Cassidy MD Referring Provider Active St art: September 20, 2024 End: September 20, 2024 Team Status: Active Member Role Status Dates No Primary Care Physician Primary Care Provider Active Start: September 27, 2024 Joselito Cassidy MD Attending Provider Active St art: September 27, 2024 Joselito Cassidy MD Referring Provider Active St art: September 27, 2024 Team Status: Active Member Role Status Dates No Primary Care Physician Primary Care Provider Active Start: September 29, 2024 Joselito Cassidy MD Attending Provider Active St art: September 29, 2024 Joselito Cassidy MD Referring Provider Active St art: September 29, 2024 Team Status: Active Member Role Status Dates No Primary Care Physician Primary Care Provider Active Start: October 11, 2024 No Primary Care Physician Referring Provider Active Start: October 11, 2024 Joselito Cassidy MD Attending Provider Active St art: October 11, 2024 Team Status: Inactive Member Role Status Dates No Primary Care Physician Primary Care Provider Active Start: October 11, 2024 End: October 11, 2024 Dr. Kaden Loomis MD Attending Provider Active S tart: October 11, 2024 End: October 11, 2024 Team Status: Inactive Member Role Status Dates No Primary Care Physician Primary Care Provider Active Start: October 11, 2024 End: October 11, 2024 No Primary Care Physician Referring Provider Active Start: October 11, 2024 End: October 11, 2024 Joselito Cassidy MD Attending Provider Active St art: October 11, 2024 End: October 11, 2024 Team Status: Active Member Role Status Dates No Primary Care Physician Primary Care Provider Active Start: October 31, 2024 Joselito Cassidy MD Attending Provider Active St art: October 31, 2024 Joselito Cassidy MD Referring Provider Active St art: October 31, 2024 Team Status: Active Member Role Status Dates No Primary Care Physician Primary Care Provider Active Start: November 01, 2024 No Primary Care Physician Referring Provider Active Start: November 01, 2024 Joselito Cassidy MD Attending Provider Active St art: November 01, 2024 Team Status: Inactive Member Role Status Dates No Primary Care Physician Primary Care Provider Active Start: November 01, 2024 End: November 01, 2024 Dr. Kaden Loomis MD Attending Provider Active S tart: November 01, 2024 End: November 01, 2024 Team Status: Inactive Member Role Status Dates No Primary Care Physician Primary Care Provider Active Start: November 01, 2024 End: November 01, 2024 No Primary Care Physician Referring Provider Active Start: November 01, 2024 End: November 01, 2024 Joselito Cassidy MD Attending Provider Active St art: November 01, 2024 End: November 01, 2024 Team Status: Active Member Role/Relationship Status Dates No Primary Care Physician Primary Care Provider Active Team Status: Inactive Member Role/Relationship Status Dates Dr. Michele Tracy MD Attending Provider Active S tart: August 06, 2024 End: August 06, 2024 Dr. Michele Tracy MD Emergency Provider Active S tart: August 06, 2024 End: August 06, 2024 No Primary Care Physician Primary Care Provider Active Start: August 06, 2024 End: August 06, 2024 Team Status: Active Member Role/Relationship Status Dates Dr. Michele Tracy MD Emergency Provider Active S tart: August 06, 2024 No Primary Care Physician Primary Care Provider Active Start: August 06, 2024 Joselito Cassidy MD Attending Provider Active St art: August 06, 2024 Team Status: Inactive Member Role/Relationship Status Dates No Primary Care Physician Primary Care Provider Active Start: August 08, 2024 End: August 08, 2024 No Primary Care Physician Referring Provider Active Start: August 08, 2024 End: August 08, 2024 Joselito Cassidy MD Attending Provider Active St art: August 08, 2024 End: August 08, 2024 Team Status: Inactive Member Role/Relationship Status Dates No Primary Care Physician Primary Care Provider Active Start: August 12, 2024 End: August 12, 2024 Joselito Cassidy MD Attending Provider Active St art: August 12, 2024 End: August 12, 2024 Joselito Cassidy MD Referring Provider Active St art: August 12, 2024 End: August 12, 2024 Team Status: Active Member Role/Relationship Status Dates No Primary Care Physician Primary Care Provider Active Start: August 12, 2024 Joselito Cassidy MD Attending Provider Active St art: August 12, 2024 Joselito Cassidy MD Referring Provider Active St art: August 12, 2024 Joselito Cassidy MD Other Provider Active Start: August 12, 2024 Team Status: Inactive Member Role/Relationship Status Dates No Primary Care Physician Primary Care Provider Active Start: August 15, 2024 End: August 15, 2024 No Primary Care Physician Referring Provider Active Start: August 15, 2024 End: August 15, 2024 Joselito Cassidy MD Attending Provider Active St art: August 15, 2024 End: August 15, 2024 Team Status: Inactive Member Role/Relationship Status Dates No Primary Care Physician Primary Care Provider Active Start: August 26, 2024 End: August 26, 2024 No Primary Care Physician Referring Provider Active Start: August 26, 2024 End: August 26, 2024 Joselito Cassidy MD Attending Provider Active St art: August 26, 2024 End: August 26, 2024 Team Status: Inactive Member Role/Relationship Status Dates No Primary Care Physician Primary Care Provider Active Start: August 26, 2024 End: August 26, 2024 Dr. Kaden Loomis MD Attending Provider Active S tart: August 26, 2024 End: August 26, 2024 Team Status: Inactive Member Role/Relationship Status Dates No Primary Care Physician Primary Care Provider Active Start: September 20, 2024 End: September 20, 2024 No Primary Care Physician Referring Provider Active Start: September 20, 2024 End: September 20, 2024 Joselito Cassidy MD Attending Provider Active St art: September 20, 2024 End: September 20, 2024 Team Status: Inactive Member Role/Relationship Status Dates No Primary Care Physician Primary Care Provider Active Start: September 20, 2024 End: September 20, 2024 Dr. Kaden Loomis MD Attending Provider Active S tart: September 20, 2024 End: September 20, 2024 Team Status: Inactive Member Role/Relationship Status Dates No Primary Care Physician Primary Care Provider Active Start: September 20, 2024 End: September 20, 2024 Joselito Cassidy MD Attending Provider Active St art: September 20, 2024 End: September 20, 2024 Joselito Cassidy MD Referring Provider Active St art: September 20, 2024 End: September 20, 2024 Team Status: Inactive Member Role/Relationship Status Dates No Primary Care Physician Primary Care Provider Active Start: October 11, 2024 End: October 11, 2024 No Primary Care Physician Referring Provider Active Start: October 11, 2024 End: October 11, 2024 Joselito Cassidy MD Attending Provider Active St art: October 11, 2024 End: October 11, 2024 Team Status: Inactive Member Role/Relationship Status Dates No Primary Care Physician Primary Care Provider Active Start: October 11, 2024 End: October 11, 2024 Dr. Kaden Loomis MD Attending Provider Active S tart: October 11, 2024 End: October 11, 2024 Team Status: Inactive Member Role/Relationship Status Dates No Primary Care Physician Primary Care Provider Active Start: November 01, 2024 End: November 01, 2024 No Primary Care Physician Referring Provider Active Start: November 01, 2024 End: November 01, 2024 Joseilto Cassidy MD Attending Provider Active St art: November 01, 2024 End: November 01, 2024 Team Status: Inactive Member Role/Relationship Status Dates No Primary Care Physician Primary Care Provider Active Start: November 01, 2024 End: November 01, 2024 Dr. Kaden Loomis MD Attending Provider Active S tart: November 01, 2024 End: November 01, 2024 Team Status: Active Member Role/Relationship Status Dates No Primary Care Physician Primary Care Provider Active Start: November 02, 2024 Joselito Cassidy MD Attending Provider Active St art: November 02, 2024 Joselito Cassidy MD Referring Provider Active St art: November 02, 2024 Team Status: Inactive Member Role/Relationship Status Dates No Primary Care Physician Primary Care Provider Active Start: November 24, 2024 End: November 24, 2024 Joselito Cassidy MD Attending Provider Active St art: November 24, 2024 End: November 24, 2024 Joselito Cassidy MD Referring Provider Active St art: November 24, 2024 End: November 24, 2024 Team Status: Inactive Member Role/Relationship Status Dates No Primary Care Physician Primary Care Provider Active Start: December 02, 2024 End: December 02, 2024 No Primary Care Physician Referring Provider Active Start: December 02, 2024 End: December 02, 2024 Joselito Cassidy MD Attending Provider Active St art: December 02, 2024 End: December 02, 2024 Goals (unrecognized section and content) Goals may be documented in a n alternate section (unrecognized sect ion and content) No Status Records Found INFORMATION SOURCE (unrecogn ized section and content) DATE CREATED AUTHOR 12/09/2024 [facility] FOR RECORDS PERTAINING TO PATIENTS WHO ARE OR HAVE BEEN ENROLLED IN A CHEMICAL DEPENDENCY/SUBSTANCEABUSE PROGRAM, SOME INFORMATION MAY BE OMITTED. This clinical summary was aggregated from multiple sources. Caution should be exercised in using it in the provision of clinical care. This summary normalizes information from multiple sources, and as a consequence, information in this document may materially change the coding, format and clinical context of patient data. In addition, data may be omitted in some cases. CLINICAL DECISIONS SHOULD BE BASED ON THE PRIMARY CLINICAL RECORDS. [employer] [facility]. provides no warranty or guarantee of the accuracy or completeness of information in this document.
[2024-12-14 03:55] LABS: Color, Urine Yellow (Yellow); Glucose, Dipstick Normal (Normal); Ketone-Dipstick 5 mg/dl (Negative); Leukocyte Esterase-Dipstick Negative /ul (Negative); Nitrite-Dipstick Negative (Negative); Occult Blood-Urine 250 /ul (Negative); Protein-Dipstick 100 mg/dl (Negative); Specific Gravity, Urine 1.030 (1.002-1.030); Urine Bilirubin Dipstick Negative (Negative)
[2024-12-14 03:56] LABS: Anion Gap 15 (5-15); BUN 11 mg/dL (4-19); BUN/Creat Ratio 10.8 RATIO (10-20); Calcium,Total 9.6 mg/dL (7.6-11.0); Carbon Dioxide 23.2 mmol/L (21.0-32.0); Chloride 105 mmol/L (98-108); Estimated Creatinine Clearance 119.79 ml/min (50-250); Glucose 122 mg/dL (70-99); Potassium 3.7 mmol/L (3.3-5.1)
[2024-12-14 04:55] LABS: Mucous, Urine 1+ /hpf (<or=2+); Red Blood Cells-Urine > 100 SEEN /hpf (0-5); Squamous Epithelial Cells - UA 0-5 SEEN /hpf (0-5)
[2024-12-14 05:00] VITALS: BP 185/97; PULSE 80; RESP 18; O2SAT 98
--- NOTE | 2024-12-14 05:40 | EX.ED.DYSGE1 ---
HPI History of Present Illness Chief Complaint: Abd Pain Informant: patient and spouse/S.O. Narrative Narrative: Patient is a 39-year-old male with no significant past medical history. He states he has had a few episodes of loose stool over the last 2 to 3 days but has not had any significant abdominal pain fevers chills nausea or vomiting. He reports that he went to bed last night feeling overall normal and then awoke around 2:30 in the morning with sharp right sided/lower abdominal pain. He states he became nauseous after the onset of the pain but denies any vomiting. He states he has not noticed any blood or discoloration to his urine. However with the sudden onset of pain there was concern for potential infection and therefore he presents for evaluation [facility] Medical History Wears glasses Asthma Former smoker History of edema Closed left ankle fracture Ankle fracture Home Medications ?Medication ?Instructions ?Recorded ?Last Taken ?Type cholecalciferol (vitamin D3) 10 10 mcg PO QDAY 11/01/24 Unknown History mcg (400 unit) capsule cephalexin 500 mg capsule 500 mg PO BID 7 days #14 caps 12/14/24 Unknown Rx ketorolac 10 mg tablet 10 mg PO 4X/DAY PRN pain 5 days 12/14/24 Unknown Rx #20 tabs ondansetron 4 mg disintegrating 4 mg PO TID PRN nausea and 12/14/24 Unknown Rx tablet vomiting #21 tabs oxycodone-acetaminophen 5 mg-325 1 tab PO Q6H PRN pain 5 days #20 12/14/24 Unknown Rx mg tablet (Endocet) tabs tamsulosin 0.4 mg capsule (Flomax) 0.4 mg PO DAILY 14 days #14 caps 12/14/24 Unknown Rx Allergy/AdvReac Type Severity Reaction Status Date / Time No Known Allergies Allergy Verified 12/14/24 03:15 Family History Father Hypertension Surgical History History of ankle surgery H/O vasectomy History of placement of ear tubes Social History Smoking Status: Former smoker ROS ROS ED Constitutional Constitutional ED: Denies chills or fever(s) Eyes Eyes: Denies change in vision ENT ENT ED: Denies sore throat Cardiovascular Cardiovascular: Denies chest pain Respiratory/Chest Respiratory/Chest: Denies cough or dyspnea Gastrointestinal Gastrointestinal: Reports abdominal pain and nausea; Denies diarrhea or vomiting Genitourinary Genitourinary ED: Denies dysuria or hematuria Musculoskeletal Musculoskeletal: Denies back pain Integumentary Denies rash Neurologic Neurologic: Denies headache(s) Hematologic/Lymphatic Hematologic/Lymphatic: Denies easy bleeding or easy bruising Allergic/Immunologic Allergic/Immunologic ED: Denies mouth swelling or tongue swelling EXAM Physical Exam Const Vital Signs: 12/14/24 03:15 12/14/24 05:00 12/14/24 05:50 Temperature 98.1 F 98 F Temperature Source Oral Pulse Rate 81 80 61 Respiratory Rate 18 18 18 Blood Pressure 195/109 H 185/97 H 168/99 H Blood Pressure Mean 137 126 122 Pulse Ox 100 98 99 Oxygen Delivery Method Room Air Room Air Positive well nourished and well developed General Appearance ED: well developed; Negative for pallor HEENT HEENT Narrative: Normocephalic atraumatic No tongue or lip swelling no oral lesions no airway edema or compromise; no secondary findings in the posterior pharynx to suggest infection Eyes PERRL and EOMs intact bilaterally General Eye ED: Negative for scleral icterus Neck supple Resp normal respiratory effort and clear to auscultation bilaterally Cardio regular rate and regular rhythm Rate: other Other Details: Heart is regular rate and rhythm without murmurs rubs or gallop Radial and carotid pulses are equal and symmetric GI non-distended and no masses GI Narrative: Abdomen is soft and nondistended with normal active bowel sounds. Patient has pain with palpation in the right lateral/mid abdomen without voluntary guarding or rigidity. No pain or McBurney's point. Negative heel strike psoas and obturator signs. No pulsatile mass. Auscultation: normoactive bowel sounds Palpation: soft Back/Spine Back/Spine Narrative: Mild right CVA pain noted Extremity normal to inspection Neuro oriented x3, CN's II-XII intact bilaterally and no sensory deficits noted Sensorium / Orientation: alert Motor Exam: strength 5/5 throughout Psych mental status grossly normal Skin no rashes or lesions noted and no wounds General Skin Exam: Negative for jaundice or pallor MDM MDM MDM Narrative Medical decision making narrative: Patient arrived to the ER hypertensive but otherwise with stable vitals. He reported sudden onset of right sided abdominal discomfort with nausea. Differential diagnosis is for UTI versus pyelonephritis versus kidney stone versus biliary colic versus pancreatitis versus appendicitis. As his history and exam is most consistent with kidney stone I felt patient should undergo basic laboratory testing with noncontrast CT scan. Labs showed no sign of urosepsis or acute kidney injury. CT scan confirmed a 3 mm distal right sided UVJ stone with mild obstruction. After receiving Toradol and morphine patient did report improvement of his pain. He was informed that at 3 mm the stone should pass spontaneously. He states that he feels better at this time and would not want to discuss admission or transfer secondary to persistent pain. As he does not have DUSTY or urosepsis there is no need for emergent admission or urology consultation. Therefore as patient reports feeling better and his history and exam correlate with his diagnosis of kidney stone he will be given symptomatic medication and discharged home with outpatient urology follow-up History & Record Review Discussion w/independent historian: Patient and Significant other Lab Data Attestation: I reviewed the patient's lab results. Labs: Laboratory Results - last 24 hr 12/14/24 12/14/24 03:33 03:40 WBC 11.9 H RBC 5.61 Hgb 16.0 Hct 47.7 MCV 85.0 MCH 28.5 MCHC 33.5 RDW Std Deviation 40.8 RDW Coeff of [place] 13.2 Plt Count 302 MPV 8.8 Immature Gran % (Auto) 0.300 Neut % (Auto) 56.2 Lymph % (Auto) 34.6 Parker % (Auto) 6.6 Eos % (Auto) 1.8 Baso % (Auto) 0.5 Absolute Neuts (auto) 6.7 Absolute Lymphs (auto) 4.13 Nucleated RBC % 0 Sodium 143 Potassium 3.7 Chloride 105 Carbon Dioxide 23.2 Anion Gap 15 BUN 11 Creatinine 1.05 Estim Creat Clear Calc 119.79 Est GFR (MDRD) Non-Af 94 BUN/Creatinine Ratio 10.8 Glucose 122 H Calcium 9.6 Urine Color Yellow Urine Clarity Sl. Cloudy Urine pH 6.0 Ur Specific [place] 1.030 Urine Protein 100 H Urine Glucose (UA) Normal Urine Ketones 5 H Urine Occult Blood 250 H Urine Nitrite Negative Urine Bilirubin Negative Urine Urobilinogen Normal Ur Leukocyte Esterase Negative Urine RBC > 100 SEEN Urine WBC 0-5 SEEN Ur Squamous Epith Cells 0-5 SEEN Urine Bacteria 2+ Hyaline Casts 0-5 SEEN Urine Mucus 1+ Radiography Diagnostic Testing: Clinical Impression(s) from Imaging Studies Abdomen/Pelvis CT 12/14/24 03:29 IMPRESSION: 3 mm right UVJ stone, mild hydronephrosis. Reading Location: [place] [address] Discharge Plan Triage Chief Complaint: Abd Pain ED Provider: Dillon García Dx/Rx/DC Orders Clinical Impression: Kidney stone on right side, Renal colic Instructions: ED Kidney Stone with Pain Prescriptions: New ondansetron 4 mg tablet,disintegrating 4 mg PO TID PRN (Reason: nausea and vomiting) Qty: 21 0RF ketorolac 10 mg tablet 10 mg PO 4X/DAY PRN (Reason: pain) 5 Days Qty: 20 0RF tamsulosin [Flomax] 0.4 mg capsule 0.4 mg PO DAILY 14 Days Qty: 14 0RF cephalexin 500 mg capsule 500 mg PO BID 7 Days Qty: 14 0RF oxycodone-acetaminophen [Endocet] 5-325 mg tablet 1 tab PO Q6H PRN (Reason: pain) 5 Days Qty: 20 0RF No Action cholecalciferol (vitamin D3) 10 mcg (400 unit) capsule 10 mcg PO QDAY Primary Care Provider: Care Physician,No Primary Referrals: Henrik Saldivar MD [Med Staff - Active Staff] - (Kidney stone) Care Physician,No Primary [Primary Care Provider] - Activity Restrictions/Additional Instructions: Please keep yourself well-hydrated and stay active in order to help with passed your kidney stone. If you develop a fever of 100.4 or higher or your pain is not controlled with the provided medication please return for repeat evaluation. Print Language: [place] Citizen Disposition Disposition: Home, Self Care Discharge Date/Time: 12/14/24 05:53
[2024-12-14 05:50] VITALS: BP 168/99; PULSE 61; RESP 18; TEMP 36.6; O2SAT 99
== END 2024-12-14 05:53 | disposition home or self-care (01) ==
PROVIDERS: Emergency Provider Emergency Medicine; Visit Provider Emergency Medicine
DX: N13.2 Hydronephrosis with renal and ureteral calculous obstruction (principal); N23 Unspecified renal colic; Z87.891 Personal history of nicotine dependence; J45.909 Unspecified asthma, uncomplicated
CPT/HCPCS: 74176; 80048; 81001; 85025; 96361; 96374; 96375; 99283; A4216; J2405

== ENCOUNTER → 2024-12-24 | Outpatient (CLI) | payer OTHER, SELFPAY ==
--- OUTSIDE RECORDS SUMMARY | 2024-12-24 07:37 | XMS RPT_ITS | CCD ---
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 calcium cecille urement (mass/volume)Ordered By: Dillon García on 12-14-2024 Calcium [Mass/Vol] 9.6 mg/dL 7.6-11.0 [facility] Serum or plasma urea nitroge n measurement (mass/volume)Ordered By: Dillon García on 12-14-2024 Urea nitrogen [Mass/Vol] 11 mg/dL 4-19 [facility] Sodium levelOrdered By: Mode García on 12-14-2024 Sodium [Moles/Vol] 143 mmol/L 133-145 [facility] Squamous epithelial cells de tection in urine sediment by light microscopyOrdered By: Dillon García on 12-14-2024 Epithelial cells.squamous LM Ql (Urine sed) 0-5 SEEN /hpf 0-5 [facility] Urinalysis, Completeon 12-14 BACTERIA 2+ /hpf Normal None Seen [facility] Comment on above: Order Comment: CLEAN CATCH Performed By: #### L 400.0001 ####[facility] [address] [place], [place], [id number] CAST,HYALINE 0-5 SEEN Normal 0-5 [facility] Comment on above: Order Comment: CLEAN CATCH Performed By: #### L 400.0001 ####[facility] [address] [place], [place], [id number] EPI,SQUAMOUS 0-5 SEEN Normal 0-5 [facility] Comment on above: Order Comment: CLEAN CATCH Performed By: #### L 400.0001 ####[facility] [address] [place], [address] Mucus Ql (Urine sed) 1+ /hpf Normal [facility] Comment on above: Order Comment: CLEAN CATCH Performed By: #### L 400.0001 ####[facility] [address] [place], [address] RBC > 100 SEEN Normal 0-5 [facility] Comment on above: Order Comment: CLEAN CATCH Performed By: #### L 400.0001 ####[facility] [address] [place], [address] WBC 0-5 SEEN Normal 0-5 [facility] Comment on above: Order Comment: CLEAN CATCH Performed By: #### L 400.0001 ####[facility] [address] [place], [address] BILIRUBIN URINE Negative Normal Negative [facility] Comment on above: Order Comment: CLEAN CATCH Performed By: #### L 400.0001 ####[facility] [address] [place], [address] Clarity (U) Sl. Cloudy Normal Clear [facility] Comment on above: Order Comment: CLEAN CATCH Performed By: #### L 400.0001 ####[facility] [address] [place], [address] Color (U) Yellow Normal Yellow [facility] Comment on above: Order Comment: CLEAN CATCH Performed By: #### L 400.0001 ####[facility] [address] [place], [address] GLUCOSE, UR Normal Normal Normal [facility] Comment on above: Order Comment: CLEAN CATCH Performed By: #### L 400.0001 ####[facility] [address] [place], [address] KETONE UR 5 mg/dl Abnormal Negative [facility] Comment on above: Order Comment: CLEAN CATCH Performed By: #### L 400.0001 ####[facility] [address] [place] [phone] LEUK ESTERASE Negative Normal Negative [facility] Comment on above: Order Comment: CLEAN CATCH Performed By: #### L 400.0001 ####[facility] [address] [place] [address] Nitrite Ql (U) Negative Normal Negative [facility] Comment on above: Order Comment: CLEAN CATCH Performed By: #### L 400.0001 ####[facility] [address] [place] [address] OCCULT BLOOD-UR 250 /ul Abnormal Negative [facility] Comment on above: Order Comment: CLEAN CATCH Performed By: #### L 400.0001 ####[facility] [address] [place] [address] pH UR 6.0 Normal 5.0 - 8.0 [facility] Comment on above: Order Comment: CLEAN CATCH Performed By: #### L 400.0001 ####[facility] [address] [place] [address] PROT DIPSTX 100 mg/dl Abnormal Negative [facility] Comment on above: Order Comment: CLEAN CATCH Performed By: #### L 400.0001 ####[facility] [address] [place] [address] SP.GR. DIPSTX 1.030 Normal 1.002-1.030 [facility] Comment on above: Order Comment: CLEAN CATCH Performed By: #### L 400.0001 ####[facility] [address] [place] [address] UROBILI Normal Normal Normal [facility] Comment on above: Order Comment: CLEAN CATCH Performed By: #### L 400.0001 ####[facility] [address] [facility] [phone] Urine clarityOrdered By: Keon García on 12-14-2024 Clarity (U) Sl. Cloudy Clear [facility] Urine color determinationOrd ered By: Dillon García on 12-14-2024 Color (U) Yellow Yellow [facility] Urine glucose detectionOrder ed By: Dillon García on 12-14-2024 Glucose Ql (U) Normal mg/dl Normal [facility] Urine leukocyte esterase det ection by dipstickOrdered By: Dillon García on 12-14-2024 Leukocyte esterase Test strip Ql (U) Negative Negative [facility] Urine pHOrdered By: Dillon cheung on 12-14-2024 pH (U) 6.0 [pH] 5.0 - 8.0 [facility] Urine sediment bacteria coun t by microscopy (number/high power field)Ordered By: Dillon García on 12-14-2024 Bacteria LM.HPF (Urine sed) [#/Area] 2 /[HPF] None Seen [facility] Urine specific gravity measu rementOrdered By: Dillon García on 12-14-2024 Specific gravity (U) [Rel density] 1.030 1.002-1.030 [facility] Urine urobilinogen measureme ntOrdered By: Dillon García on 12-14-2024 Urobilinogen Ql (U) Normal mg/dl Normal [facility] White blood cell (WBC) count Ordered By: Dillon García on 12-14-2024 WBC (Bld) [#/Vol] 11.9 10*3/uL High 4.4-11.0 [facility] White blood cell countOrdere d By: Dillon García on 12-14-2024 White blood cell count 0-5 SEEN /hpf 0-5 [facility] Re-Evaluation - PT (1)on Re-Evaluation - PT (1) [facility] [address] [place] [address]. 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 Objective Objective/Function: Doc note [...] do not hesitate to contact me at [phone] by phone or if you have questions or concerns regarding this new plan of care! Sincerely, Ulises Alegria, KEYSHAWNT, OCS, CSCS 12/05/24 1502 CC: Dr. Joselito Cassidy MD; No Primary Care Physician EBG Signed For Medicare only, by signing this I certify the plan of care. Physicians Signature Date Normal [facility] Orthopedic Visit Reporton Orthopedic Visit Report [facility] [address] [place] [address] 5 [place] [address] OFFICE VISIT Date of Service: 12/02/24 MR#: [id number] Acct: [id number] Name: CHELSEA BARRY Rep #: [id number] : 1985 Provider: Dr. Joselito barnhart MD Age/Sex: 39/M [place] [facility] Status: Signed Intake Vital Signs 11/01/24 15:26 [...] concerns, taking the vit D. Supplemental Info [facility] Services [address] [place], [place] [id number] Extremity Lower without Contra MR#: [id number] Acct: [id number] Name: CHELSEA BARRY Rep #: [id number] : 1985 M 39 From: Glenn Low MD PCP: Care Physician,No Primary Status: REG CLI Study: Extremity Lower without Contra Date of Exam: 11/24/24 Exam# [id number] Ordering Dr: Joselito Cassidy MD PROCEDURE: EXTREMITY [...] I, Superf (more content not included)... Normal [facility] Extremity Lower without Cont raon 11-24-2024 Extremity Lower without Contra [facility] [address] [place], [place] [address] Extremity Lower without Contra MR#: [id number] Acct: [id number] Name: CHELSEA BARRY Rep #: [id number] : 1985 M 39 From: Glenn Low MD PCP: Care Physician,No Primary Status: REG CLI Study: Extremity Lower without Contra Date of Exam: 0 11/24/24 Exam# [id number] Ordering Dr: Joselito Cassidy MD PROCEDURE: EXTREMITY [...] incomplete cortication. Alignment is maintained. [facility] CC: Dr. Joselito Cassidy MD; No Primary Care Physician Career Services Coordinator: Signed Normal [facility] Ankle min 3 Viewson 11-02-19 Ankle min 3 Views [facility] [address] [place] [address] Ankle min 3 Views MR#: [id number] Acct: [id number] Name: CHELSEA BARRY Rep #: [id number] : 1985 M 39 From: Choco reed MD PCP: Care Physician,No Primary Status: DEP AMB Study: Ankle min 3 Views Date of Exam: 11/01/24 Exam# [id number] Ordering Dr: Joselito Cassidy MD PROCEDURE: ANKLE MIN 3 VIEWS 11/01/2024 REASON FOR EXAM: FOLLOW UP TECHNIQUE: ANKLE MIN 3 VIEWS COMPARISON: 10/11/2024. FINDINGS: Unchanged distal tibial and fibular metallic hardware. Unchanged fibular fracture. 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 Unchanged soft tissue edema and swelling. RAD/Ankle min 3 Views IMPRESSION: No significant change is noted. Reading [facility] CC: Dr. Joselito Cassidy MD; No Primary Care Physician Career Services Coordinator: Signed Normal [facility] Orthopedic Visit Reporton Orthopedic Visit Report [facility] [address] [place] [address] [address] [place] [address] OFFICE VISIT Date of Service: 11/01/24 MR#: [id number] Acct: [id number] Name: CHELSEA BARRY Rep #: [id number] : 1985 Provider: Dr. Joselito barnhart MD Age/Sex: 39/M [place] [facility] Status: Signed Intake Vital Signs 08/12/24 06:24 [...] Cosigner Signature: Date (if applicable) CC: Normal [facility] Ankle min 3 Viewson 10-12-19 Ankle min 3 Views [facility] [address] [place], [place] [address] Ankle min 3 Views MR#: [id number] Acct: [id number] Name: CHELSEA BARRY Rep #: [id number] : 1985 M 39 From: Gabo Leung MD PCP: Care Physician,No Primary Status: DEP [facility] Study: Ankle min 3 Views Date of Exam: 10/11/24 Exam# [id number] Ordering Dr: Joselito Cassidy MD PROCEDURE: ANKLE [...] or changes of disuse osteopenia. Reading Location: [facility] CC: Dr. Jsoelito Cassidy MD; No Primary Care Physician Career Services Coordinator: Signed Normal [facility] Orthopedic Visit Reporton Orthopedic Visit Report [facility] [address] [place] [address] [address] [place] [address] OFFICE VISIT Date of Service: 10/11/24 MR#: [id number] Acct: [id number] Name: CHELSEA BARRY Rep #: [id number] : 1985 Provider: Dr. 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 [...] Orders: Orders Ankle min 3 Views Today S82.995S - Other fracture of left lower leg, [...] Cosigner Signature: Date (if applicable) CC: Normal [facility] Absolute lymphocyte countOrd ered By: Joselito Cassidy on 09-20-2024 Lymphocytes Auto (Unsp spec) [#/Vol] 2.99 10*3/uL 0.83-4.51 [facility] Absolute neutrophil countOrd ered By: Joselito Cassidy on 09-20-2024 Neutrophils (Bld) [#/Vol] 5.1 10*3/uL 2.0-7.7 [facility] Anion gap in Serum or Plasma Ordered By: Joselito Cassidy on 09-20-2024 Anion gap [Moles/Vol] 13 mmol/L 09-22 [facility] Ankle min 3 Viewson 09-21-19 Ankle min 3 Views [facility] [address] [place] [address] Ankle min 3 Views MR#: [id number] Acct: [id number] Name: CHELSEA BARRY Rep #: [id number] : 1985 M 39 From: Glenn Low MD PCP: Care Physician,No Primary Status: DEP AMB Study: Ankle min 3 Views Date of Exam: 09/20/24 Exam# [id number] Ordering Dr: Joselito Cassidy MD PROCEDURE: ANKLE [...] Joselito Cassidy MD; No Primary Care Physician Career Services Coordinator: Signed Normal [facility] Automated lymphocyte count a s percentage of total leukocytesOrdered By: Joselito Cassidy on 09-20-2024 Lymphocytes/100 WBC Auto (Unsp spec) 33.4 % 19- [facility] Basophil percentageOrdered B y: Joselito Cassidy on 09-20-2024 Basophils/100 WBC (Bld) 0.6 % 0-1 [facility] CBC W/Diff, Automatedon 09-08 Absolute Lymph 2.99 X10 3/uL Normal 0.83-4.51 [facility] Comment on above: Performed By: #### L 100.0100, L506.1001, L501.9520, L501.6710, L501.5294 ####[facility] [address] [place], [address] Absolute Neut 5.1 X10 3/uL Normal 2.0-7.7 [facility] Comment on above: Performed By: #### L 100.0100, L506.1001, L501.9520, L501.6710, L501.5294 ####[facility] [address] [place], [address] Basophils/100 WBC (Bld) 0.6 % Normal 0-1 [facility] Comment on above: Performed By: #### L 100.0100, L506.1001, L501.9520, L501.6710, L501.5294 ####[facility] [address] [place], [address] Eosinophils/100 WBC (Bld) 1.8 % Normal 0-5 [facility] Comment on above: Performed By: #### L 100.0100, L506.1001, L501.9520, L501.6710, L501.5294 ####[facility] [address] [place], [address] Erythrocyte distribution width (RBC) [Ratio] 12.5 % Normal 11.6-14.6 [facility] Comment on above: Performed By: #### L 100.0100, L506.1001, L501.9520, L501.6710, L501.5294 ####[facility] [address] [place], [address] Hematocrit (Bld) [Volume fraction] 44.9 % Normal 40-54 [facility] Comment on above: Performed By: #### L 100.0100, L506.1001, L501.9520, L501.6710, L501.5294 ####[facility] [address] [place], [address] Hemoglobin (Bld) [Mass/Vol] 14.9 g/dL Normal 13.0-16.5 [facility] Comment on above: Performed By: #### L 100.0100, L506.1001, L501.9520, L501.6710, L501.5294 ####[facility] [address] [place], [address] IG% 0.200 Normal 0.0-0.9 [facility] Comment on above: Result Comment: IG% - Immature Granulocytes (promyelocytes, myelocytes and metamyelocytes) > 1% indicates that a LEFT SHIFT is Present. Performed By: #### L 100.0100, L506.1001, L501.9520, L501.6710, L501.5294 ####[facility] [address] [place], [address] Lymphocytes/100 WBC (Bld) 33.4 % Normal 19-41 [facility] Comment on above: Performed By: #### L 100.0100, L506.1001, L501.9520, L501.6710, L501.5294 ####[facility] [address] [place], [address] MCH (RBC) [Entitic mass] 29.0 pg Normal 27.0-32.0 [facility] Comment on above: Performed By: #### L 100.0100, L506.1001, L501.9520, L501.6710, L501.5294 ####[facility] [address] [place], [address] MCHC (RBC) [Mass/Vol] 33.2 g/dL Normal 32-36 [facility] Comment on above: Performed By: #### L 100.0100, L506.1001, L501.9520, L501.6710, L501.5294 ####[facility] [address] [place], [address] MCV (RBC) [Entitic vol] 87.5 fL Normal 80-94 [facility] Comment on above: Performed By: #### L 100.0100, L506.1001, L501.9520, L501.6710, L501.5294 ####[facility] [address] [place], [address] Monocytes/100 WBC (Bld) 6.8 % Normal 0-10 [facility] Comment on above: Performed By: #### L 100.0100, L506.1001, L501.9520, L501.6710, L501.5294 ####[facility] [address] [place], [address] Neutrophils/100 WBC (Bld) 57.2 % Normal 47-70 [facility] Comment on above: Performed By: #### L 100.0100, L506.1001, L501.9520, L501.6710, L501.5294 ####[facility] [address] [place], [address] Nucleated RBC (Bld) [#/Vol] 0 10*3/uL Normal 0-5 [facility] Comment on above: Performed By: #### L 100.0100, L506.1001, L501.9520, L501.6710, L501.5294 ####[facility] [address] [place], [address] Platelet mean volume (Bld) [Entitic vol] 9.7 fL Normal 6.2-12.0 [facility] Comment on above: Performed By: #### L 100.0100, L506.1001, L501.9520, L501.6710, L501.5294 ####[facility] [address] [place], [address] Platelets (Bld) [#/Vol] 287 10*3/uL Normal 150-450 [facility] Comment on above: Performed By: #### L 100.0100, L506.1001, L501.9520, L501.6710, L501.5294 ####[facility] [address] [place], [address] RBC (Bld) [#/Vol] 5.13 10*6/uL Normal 4.6-6.2 [facility] Comment on above: Performed By: #### L 100.0100, L506.1001, L501.9520, L501.6710, L501.5294 ####[facility] [address] [place], [address] RDW SD 40.1 fl Normal 35.1-43.9 [facility] Comment on above: Performed By: #### L 100.0100, L506.1001, L501.9520, L501.6710, L501.5294 ####[facility] [address] [place], [address] WBC (Bld) [#/Vol] 9.0 10*3/uL Normal 4.4-11.0 [facility] Comment on above: Performed By: #### L 100.0100, L506.1001, L501.9520, L501.6710, L501.5294 ####[facility] [address] [place], [address] CRPon 09-20-2024 C-REACTIVE PROT < 3.00 Normal 0.0-3.0 [facility] Comment on above: Performed By: #### L 100.0100, L506.1001, L501.9520, L501.6710, L501.5294 ####[facility] [address] [place], [address] Carbon dioxide, total [Moles /volume] in Central venous bloodOrdered By: Joselito Cassidy on 09-20-2024 CO2 [Moles/Vol] 24.4 mmol/L 21.0-32.0 [facility] Chloride assayOrdered By: Peewee Cassidy on 09-20-2024 Chloride [Moles/Vol] 103 mmol/L 98-108 [facility] Electrolyte Panelon 09-21-19 Chloride [Moles/Vol] 103 mmol/L Normal 98-108 [facility] Comment on above: Performed By: #### L 100.0100, L506.1001, L501.9520, L501.6710, L501.5294 ####[facility] [address] [place], [address] CO2 [Moles/Vol] 24.4 mmol/L Normal 21.0-32.0 [facility] Comment on above: Performed By: #### L 100.0100, L506.1001, L501.9520, L501.6710, L501.5294 ####[facility] [address] [place], [address] GAP 13 Normal 5-15 [facility] Comment on above: Performed By: #### L 100.0100, L506.1001, L501.9520, L501.6710, L501.5294 ####[facility] [address] [place], [address] Potassium [Moles/Vol] 4.1 mmol/L Normal 3.3-5.1 [facility] Comment on above: Performed By: #### L 100.0100, L506.1001, L501.9520, L501.6710, L501.5294 ####[facility] [address] [place], [address] Sodium [Moles/Vol] 140 mmol/L Normal 133-145 [facility] Comment on above: Performed By: #### L 100.0100, L506.1001, L501.9520, L501.6710, L501.5294 ####[facility] [address] [place], [address] Eosinophil percentageOrdered By: Joselito Cassidy on 09-20-2024 Eosinophils/100 WBC (Bld) 1.8 % 0-5 [facility] Erythrocyte distribution wid th ratioOrdered By: Joselito Cassidy on 09-20-2024 Erythrocyte distribution width (RBC) [Ratio] 12.5 % 11.6-14.6 [facility] Erythrocyte distribution wid th standard deviationOrdered By: Joselito Cassidy on 09-20-2024 Erythrocyte distribution width (RBC) [Ratio] 40.1 fl 35.1-43.9 [facility] Hematocrit Auto (Bld) [Volum e fraction]Ordered By: Joselito Cassidy on 09-20-2024 Hematocrit (Bld) [Volume fraction] 44.9 % 40-54 [facility] Hemoglobin measurementOrdere d By: Joselito Cassidy on 09-20-2024 Hemoglobin (Bld) [Mass/Vol] 14.9 g/dL 13.0-16.5 [facility] Immature granulocytes/100 WB C Auto (Bld)Ordered By: Joselito Cassidy on 09-20-2024 Immature granulocytes/100 WBC (Bld) 0.200 % 0.0-0.9 [facility] Comment on above: IG% - Immature Granu locytes (promyelocytes, myelocytes and metamyelocytes) > 1% indicates that a LEFT SHIFT is Present. MCV (mean corpuscular volume ) determinationOrdered By: Joselito Cassidy on 09-20-2024 MCV (RBC) [Entitic vol] 87.5 fL 80-94 [facility] Mean corpuscular hemoglobin (MCH) determinationOrdered By: Joselito Cassidy on 09-20-2024 MCH (RBC) [Entitic mass] 29.0 pg 27.0-32.0 [facility] Mean corpuscular hemoglobin concentration (MCHC) determinationOrdered By: Joselito Cassidy on 09-20-2024 MCHC (RBC) [Mass/Vol] 33.2 g/dL 32-36 [facility] Mean platelet volume determi nationOrdered By: Joselito Cassidy on 09-20-2024 Platelet mean volume (Bld) [Entitic vol] 9.7 fL 6.2-12.0 [facility] Monocyte percentageOrdered B y: Joselito Cassidy on 09-20-2024 Monocytes/100 WBC (Bld) 6.8 % 0-10 [facility] Neutrophil percentageOrdered By: Joselito Cassidy on 09-20-2024 Neutrophils/100 WBC (Bld) 57.2 % 47-70 [facility] Nucleated red blood cell per centageOrdered By: Joselito Cassidy on 09-20-2024 Nucleated RBC/100 WBC (Bld) [Ratio] 0 % 0-5 [facility] Orthopedic Visit Reporton Orthopedic Visit Report [facility] [address] [place] [address] OFFICE VISIT Date of Service: 09/20/24 MR#: [id number] Acct: [id number] Name: CHELSEA BARRY Rep #: [id number] : 1985 Provider: Dr. Joselito barnhart MD Age/Sex: 39/M [place] [facility] [place] Status: Signed Intake Vital Signs 08/12/24 06:24 [...] by me, Dr. Joselito Cassidy MD 09/20/24 4973. Part of today???s visit was documented by [...] Erythema, tend (more content not included)... Normal [facility] Platelet countOrdered By: Peewee Cassidy on 09-20-2024 Platelets (Bld) [#/Vol] 287 10*3/uL 150-450 [facility] Potassium measurement (mass/ volume)Ordered By: Joselito Cassidy on 09-20-2024 Potassium (Unsp spec) [Mass/Vol] 4.1 mmol/L 3.3-5.1 [facility] RBC Auto (Bld) [#/Vol]Ordere d By: Joselito Cassidy on 09-20-2024 RBC (Bld) [#/Vol] 5.13 10*6/uL 4.6-6.2 [facility] Serum or plasma C reactive p rotein measurement (mass/volume)Ordered By: Joselito Cassidy on 09-20-2024 CRP [Mass/Vol] mg/L 0.0-3.0 [facility] Sodium levelOrdered By: Arnie Cassidy on 09-20-2024 Sodium [Moles/Vol] 140 mmol/L 133-145 [facility] TSH DL <= 0.005 mIU/L QnOrde red By: Joselito Cassidy on 09-20-2024 TSH Qn 1.720 uIU/mL 0.300-4.200 [facility] Thyroid Stim Hormone (TSH)on 09-20-2024 TSH 1.720 uIU/mL Normal 0.300-4.200 [facility] Comment on above: Performed By: #### L 100.0100, L506.1001, L501.9520, L501.6710, L501.5294 ####[facility] [address] [place], [address] Vitamin D,25 Hydroxyon 09-20 Vitamin D 25-OH 18.3 ng/mL Low 30-100 [facility] Comment on above: Result Comment: [place] min D Status Deficiency: <20 ng/mL (50nmol/L) Insufficiency: 20-30 ng/mL (50-75 nmol/L) Sufficiency: 30-100 ng/mL (75-250 nmol/L) Toxicity: >100 ng/mL (>250 nmol/L) Performed By: #### L 100.0100, L506.1001, L501.9520, L501.6710, L501.5294 ####[facility] [address] [place], [place], [address] White blood cell (WBC) count Ordered By: Joselito Cassidy on 09-20-2024 WBC (Bld) [#/Vol] 9.0 10*3/uL 4.4-11.0 [facility] Inital Evaluation (1) - PTon 09-01-2024 Inital Evaluation (1) - PT [facility] [place] [address] / REHABILITATION SERVICES INITIAL EVALUATION MR#: [id number] Acct: [id number] Name: CHELSEA BARRY Rep #: [id number] : 1985 39 From: lUises Alegria DPT, OCS, CSCS Referring Dr.: Dr. Joselito Cassidy MD Status: R EG RCR Insurance: [employer] SELF PAY INSURANCE Patient's Visit Information Visit Information Visit Information: CHELSEA BARRY is a 39 year old M referred to Physical Therapy by Dr. Joselito Cassidy MD with a diagnosis of closed L ankle fx, ORIF 08/12. Date of Evaluation: 09/01/24 Physical Therapist: Ulises Alegria, DPT, OCS, CSCS Visit Plan Frequency: 2x /Week Duration: 2 Months Plan: 2x/week for 4-8 weeks Pt is NWB L with boot until f/u mid September with [facility] IE HEP: AROM L ankle 20x, seated [...] maybe occasional pinch. Medial ankle up to 10. Sleep is OK for 5-6 hours then needs more tylenol. No boot at night. No exercises Basic ADLs OK, shower and dress OK. Incision closed up. using crutches and NWB or scooter. 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 Pain R medial ankle: Pain Intensity [...] to be FAXED BACK to us at [phone] for Medicare purposes. For Medicare only, by signing this I certify the plan of care. Please let me know if there are questions or concerns regarding this plan of care. Physician Signature: D ate: 09/01/24 1713 CC: Dr. Joselito Cassidy MD; No Primary Care P (more content not included)... Normal [facility] Ankle min 3 Viewson 08-27-19 Ankle min 3 Views [facility] Imaging Services [address] [place], [place] [address] Ankle min 3 Views MR#: [id number] Acct: [id number] Name: CHELSEA BARRY Rep #: [id number] : 1985 M 39 From: Michael Florian MD PCP: Care Physician,No Primary Status: DEP AMB Study: Ankle min 3 Views Date of Exam: 08/26/24 Exam# [id number] Ordering Dr: Joselito Cassidy MD PROCEDURE: ANKLE [...] to the tibia as above Reading Location: [id number] CC: Dr. Joselito Cassidy MD; No Primary Care Physician Career Services Coordinator: Signed Normal [facility] Orthopedic Visit Reporton Orthopedic Visit Report [facility] [address] [place] [address] [address] [place] [address] OFFICE VISIT Date of Service: 08/26/24 MR#: [id number] Acct: [id number] Name: CHELSEA BARRY Rep #: [id number] : 1985 Provider: Dr. 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 Joselito Cassidy MD 08/26/24 3863. Part of today???s visit was documented by [...] healed. 08/26/24 1450 Date [facility]: Date (if applicable) CC: Normal [facility] Orthopedic Visit Reporton Orthopedic Visit Report [facility] [address] [place] [address] OFFICE VISIT Date of Service: 08/15/24 MR#: [id number] Acct: [id number] Name: CHELSEA BARRY Rep #: [id number] : 1985 Provider: Dr. Joselito barnhart MD Age/Sex: 39/M [place] [facility] Status: Signed Intake Vital Signs 08/08/24 09:32 [...] Cosigner Signature: Date (if applicable) CC: Normal [facility] Ankle 2 Viewson 08-12-2024 Ankle 2 Views [facility] Imaging Services [address] [place] [address] Ankle 2 Views MR#: [id number] Acct: [id number] Name: CHELSEA BARRY Rep #: [id number] : 1985 M 39 From: Michael Florian MD PCP: Care Physician,No Primary Status: [facility] Study: Ankle 2 Views Date of Exam: 08/12/24 Exam# [id number] Ordering Dr: Joselito Cassidy MD PROCEDURE: ANKLE [...] ankle fracture dislocation as above. Reading Location: [facility] CC: Dr. Joselito Cassidy MD; No Primary Care Physician Career Services Coordinator: Signed Normal [facility] Discharge Instructionon Discharge Instruction [facility] Medical Records Department [address] [place] [address] Instructions for Home/Discharge Instructions 08/12/24 1017 MR#: [id number] Acct: [id number] Name: CHELSEA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 -[facility] Start: 11-01-2024 End: 11-01-[address] Branden Tracy MD Work Phone: [facility] Work Phone: Start: 10-31-[address] Joselito medeiros MD -Physical Therapy Work Phone: Start: 10-11-2024 End: 10-11-[address] Kaden Loomis MD -[facility] Start: 10-11-2024 End: 10-11-[address] Branden Tracy MD Work Phone: [facility] Work Phone: Start: 09-29-[address] Joselito medeiros MD -Physical Therapy Work Phone: Start: 09-27-[address] Joselito medeiros MD -Physical Therapy Work Phone: Start: 09-20-2024 End: 09-20-[address] Kaden Loomis MD -[facility] Start: 09-20-2024 End: 09-20-[address] Branden Tracy MD Work Phone: [facility] Work Phone: Start: 09-20-[address] Joselito medeiros MD -Physical Therapy Work Phone: Start: 09-20-2024 End: 09-20-2024 ambulatory No Primary Care Physician Facility:[facility] Start: 08-26-2024 End: 08-26-[address] Joselito Cassidy MD -[facility] Work Phone: Start: 08-26-2024 End: 08-26-2024 ambulatory No Primary Care Physician Facility:[facility] Start: 08-15-2024 End: 08-15-[address] Joselito Cassidy MD -[facility] Work Phone: Start: 08-15-2024 End: 08-15-2024 ambulatory No Primary Care Physician Facility:[facility] Start: 08-12-2024 ambulatory Joselito Cassidy Facility :[facility] Start: 08-12-2024 Non-patient / Non-visit Dr. Joselito aragon MD -[facility] Start: 08-12-2024 End: 08-12-2024 Admission to same day surgery center Dr. Joselito Cassidy MD -[facility] Start: 08-12-2024 End: 08-12-[address] Branden Tracy MD Work Phone: [facility] Work Phone: Start: 08-08-2024 End: 08-08-[address] Joselito Cassidy MD -[facility] Work Phone: Start: 08-08-2024 End: 08-08-2024 ambulatory No Primary Care Physician Facility:[facility] Start: 08-06-2024 ambulatory Joselito Cassidy Facility :[facility] Start: 08-06-2024 Non-patient / Non-visit Dr. Joselito aragon MD -[facility] Start: 08-06-2024 End: 08-06-2024 Emergency department patient visit Dr. Branden Tracy MD Work Phone: -Emergency Department Work Phone: Procedures Date Procedure Procedure Detail Performing Clinician Start: 12-14-2024 Urnls dip stick/tabl et reagent auto microscopy No Primary Care Physician Start: 12-14-2024 Estimated creatinine clearance No Primary Care Physician Start: 12-14-2024 CT of abdomen and pe lvis without contrast No Primary Care Physician Start: 11-24-2024 MRI of lower extremity Dr. Branden Tracy MD Work Phone: Start: 11-01-2024 X-ray of ankle, thre e or more views Dr. Branden Tracy MD Work Phone: Start: 10-11-2024 X-ray of ankle, thre e or more views Dr. Branden Tracy MD Work Phone: Start: 09-20-2024 Vitamin D, 25-hydrox y measurement Dr. Branden Tracy MD Work Phone: Comment on above: Vitamin D StatusDefi ciency: <20 ng/mL (50nmol/L)Insufficiency: 20-30 ng/mL (50-75 nmol/L)Sufficiency: 30-100 ng/mL (75-250 nmol/L)Toxicity: >100 ng/mL (>250 nmol/L) Start: 09-20-2024 X-ray of ankle, thre e or more views Dr. Branden Tracy MD Work Phone: Start: 08-26-2024 X-ray of ankle, thre e or more views Dr. Branden Tracy MD Work Phone: Start: 08-12-2024 Fluoroscopic guidance Олег Tracy MD Work Phone: Start: 08-12-2024 X-ray of ankle, two views Dr. Branden Tracy MD Work Phone: Start: 08-12-2024 Open reduction with internal fixation Dr. Branden Tracy MD Work Phone: Start: 08-06-2024 X-ray of ankle, two views Dr. Branden Tracy MD Work Phone: Start: 08-06-2024 MRI of lower extremity Dr. Branden Tracy MD Work Phone: Start: 08-06-[address] Branden Tracy MD Work Phone: Start: 08-06-2024 CT of head without contrast Dr. Branden Tracy MD Work Phone: Start: 08-06-2024 Plain X-ray of tibia and fibula Dr. Branden Tracy MD Work Phone: Plan of Treatment Date Care Activity Detail Author Start: 12-14-2024 [facility] Start: 11-01-2024 X-ray of ankle, three or more views Ankle min 3 Views [facility] Start: 11-01-2024 XR Ankle GE 3 Views [facility] Start: 10-11-2024 X-ray of ankle, three or more views Ankle min 3 Views [facility] Start: 10-11-2024 XR Ankle GE 3 Views [facility] Start: 09-20-2024 X-ray of ankle, three or more views Ankle min 3 Views [facility] Start: 09-20-2024 XR Ankle GE 3 Views [facility] Start: 08-26-2024 Patient referral [facility] Work Phone: Start: 08-12-2024 Anes open proc bones lower leg/ankle/foot nos ANESTH LOWER LEG BONE SURG [facility] Start: 08-12-2024 Arthroscopy ankle surgical debridement limited ANKLE ARTHROSCOPY/SURGERY [facility] Start: 08-12-2024 Arthrs ankle exc ostchndrl dfct w/drlg dfct ANKLE ARTHROSCOPY/SURGERY [facility] Start: 08-12-2024 Injection aa&/strd femoral nerve NJX AA&/STRD FEMORAL NRV IMG [facility] Start: 08-12-2024 Injection aa&/strd sciatic nerve NJX AA&/STRD SCIATIC NRV IMG [facility] Start: 08-12-2024 Open treatment bimalleolar ankle fracture TREATMENT OF ANKLE FRACTURE [facility] Start: 08-12-2024 Open tx distal tibiofibular joint disruption TREAT LOWER LEG JOINT [facility] Start: 08-12-2024 Patient discharge [facility] Start: 08-12-2024 Application of ice collar, cap or bag [facility] Start: 08-12-2024 Assessment of risk of venous thromboembolism [facility] Start: 08-12-2024 Catheterization of vein [facility] Start: 08-12-2024 Continuous positive airway pressure ventilation treatment [facility] Start: 08-12-2024 Elevation of affected extremity [facility] Start: 08-12-2024 Following clinical pathway protocol [facility] Start: 08-12-2024 Gait training procedure [facility] Start: 08-12-2024 Incentive spirometry [facility] Start: 08-12-2024 Introduction of urinary catheter [facility] Start: 08-12-2024 Vital signs measurements [facility] Start: 08-12-2024 [facility] Start: 08-12-2024 X-ray of ankle, two views Ankle 2 Views [facility] Start: 08-12-2024 XR Ankle 2 Views [facility] Start: 08-06-2024 [facility] Start: 08-06-2024 Closed tx ankle dislocation w/o anesthesia TREAT ANKLE DISLOCATION [facility] C reactive protein [Mass/volume] in Serum or Plasma [facility] CBC W Auto Different ial panel - Blood [facility] Electrolytes 1997 pa tricia - Serum or Plasma [facility] MR Lower extremity W O contrast [facility] Patient Education [facility] Work Phone: [facility] Work Phone: Thyroid stimulating hormone measurement [facility] Vitamin D, 25-hydrox y measurement [facility] Payers Date Payer Category Payer Self-pay 2024 Private Health Insurance [id number] 2007 Unknown [id number] Unknown [id number] 2.16.8 [id number] Unknown [id number] 2.16.8 40.1.895157.3.579.2.462 Unknown [id number] 2.16.8 40.1.003842.3.579.2.462 Unknown [id number] 2.16.8 40.1.753027.3.579.2.462 Unknown [id number] 2.16.8 40.1.435634.3.579.2.462 Unknown [id number] 2.16.8 40.1.094751.3.579.2.462 Unknown [id number] 2.16.8 40.1.858847.3.579.2.462 Unknown [id number] 2.16.8 40.1.938597.3.579.2.462 Unknown [id number] 2.16.8 40.1.983535.3.579.2.462 Unknown [id number] 2.16.8 40.1.605146.3.579.2.462 Unknown [id number] 2.16.8 40.1.988044.3.579.2.462 Unknown [id number] 2.16.8 40.1.724725.3.579.2.462 Unknown [id number] 2.16.8 40.1.901496.3.579.2.462 Unknown [id number] 2.16.8 40.1.510882.3.579.2.462 Unknown [id number] 2.16.8 40.1.498108.3.579.2.462 Unknown [id number] 2.16.8 40.1.821715.3.579.2.462 Unknown [id number] 2.16.8 40.1.411021.3.579.2.462 Unknown [id number] 2.16.8 40.1.767095.3.579.2.462 Unknown [id number] 2.16.8 40.1.988944.3.579.2.462 Unknown [id number] 2.16.8 40.1.474070.3.579.2.462 Social History Date Type Detail Facility [facility]: [facility]06[facility] Start: 08-06-2024 End: 08-12-2024 Sex Male (finding) [facility] Start: 1985 Sex Assigned At Male [facility] Start: 08-09-2024 End: 12-14-2024 Tobacco smoking status NHIS Ex-smoker (finding) [facility] Medical Equipment Procedure Code Equipment Code Equipment Original Text Equipment Identifier Dates ORIF, ankle 3.0 Cancellous S crew, stainless steel FDA Start: 08-12-2024 ORIF, ankle 3.0 Cancellous S crews stainless steel FDA Start: 08-12-2024 ORIF, ankle 4 mm Long thread cannulated screw FDA Start: 08-12-2024 ORIF, ankle Ligament reconst ruction instrument set, reusable ()[id number] FDA Start: 08-12-2024 ORIF, ankle Ligament reconst ruction instrument set, reusable ()[id number] FDA Start: 08-12-2024 ORIF, ankle Arthrodesis intramedullary nail, non-distracting ()[id number] FDA Start: 08-12-2024 ORIF, ankle 3.0 [...] Date Assessment Result Facility 08-12-2024 Cognitive function Voice/Name;Touch/Sneha ng [facility] Work Phone: 08-06-2024 Cognitive function Awake;Alert;A ppropriate;Fol lows Commands [facility] Work Phone: Clinical Notes 08-06-2024 to 12-14-2024 Note Date & Type Note Facility 12-14-2024 Radiology Diagnostic study note [facility] Imaging Services [address] [place], [place] [address] Abdomen/Pelvis without Cont MR#: [id number] Acct: [id number] Name: CHELSEA BARRY Rep #: [id number] : 1985 M 39 From: Harmony Mello MD PCP: Care Physician,No Primary Status: REG ER Study:Abdomen/Pelvis without Cont Date of Exa m: 12/14/24 Exam# [id number] Ordering Dr: Mariana García DO PROCEDURE: ABDOMEN/PELVIS WITHOUT CONT 12/14/2024 REASON FOR EXAM: RIGHT FLANK PAIN TECHNIQUE: ABDOMEN/PELVIS WITHOUT CONT Noncontrast technique limits evaluation of the abdominal and pelvic viscera. Coronal and Sagittal reconstruction series were provided. One or more dose reduction techniques were used (e.g., Automated exposure control, adjustment of the mA and/or kV according to patient size, use of iterative reconstruction technique). RADIATION DOSE SUMMARY: CTDlvol: 14 mGy DLP: 815 mGycm COMPARISON: No FINDINGS: Clear lung bases. Normal heart size. Unremarkable liver, gallbladder, pancreas, spleen, adrenal glands, left kidney. The right kidney is swollen. Multiple renal stones measuring up to 2 mm. Mild hydronephrosis. 3 mm UVJ stone. Unremarkable bladder. Normal prostate. No retroperitoneal or pelvic adenopathy. No free air. Nondistended bowel. Normal appendix. Multiple diverticula. No acute large bowel findings. No acute abdominal wall findings. CT/Abdomen/Pelvis without Cont IMPRESSION: 3 mm right UVJ stone, mild hydronephrosis. Reading Location: [place] [address] CC: Dillon Andes, DO; No Primary Care Physician ~ Career Services Coordinator: Signed [facility] 11-28-2024 Radiology Diagnostic study note [facility] Imaging Services [address] [place] [address] Extremity Lower without Contra MR#: [id number] Acct: [id number] Name: CHELSEA BARRY Rep #: [id number] : 1985 M 39 From: Alejandro Low MD PCP: Care Physician,No Primary Status: REG CLI Study:Extremity Lower without Contra Date of Exam: 11/24/24 Exam# [id number] Ordering Dr: Joselito Cassidy MD PROCEDURE: EXTREMITY [...] incomplete cortication. Alignment is maintained. [facility] CC: Dr. Joselito Cassidy MD; No Primary Care Physician ~ Career Services Coordinator: Signed [facility] 11-01-2024 Progress note [facility] 11-01-2024 Progress note Note Date/Time November 01, 2024 3:47pm [facility] [address] [place] [address] OFFICE VISIT Date of Service: 11/01/24 MR#: [id number] Acct: [id number] Name: CHELSEA BARRY Rep #: [id number] : 1985 Provider: Dr. Arnie Cassidy MD Age/Sex: 39/M [place] [facility] [place] Status: Signed Intake Vital Signs 08/12/24 06:24 [...] by me, Dr. Joselito Cassidy MD 11/01/24 2072. Part of today?s visit was documented by [...] Fracture blisters dried and healed. 11/01/24 1547 <Electronically signed by Joselito reed MD> Date _ Joselito Cassidy MD [facility] Signature: Date (if applicable) CC: ~ [facility] Work Phone: 1(102) 128-714606-03-2025 Progress [facility] [address] [place] [address] OFFICE VISIT Date of Service: 10/11/24 MR#: [id number] Acct: [id number] Name: CHELSEA BARRY Rep #: [id number] : 1985 Provider: Dr. Arnie Cassidy MD Age/Sex: 39/M [place] [facility] Status: Signed Intake Vital Signs 08/12/24 06:24 [...] He was contacted by the bone stimulator outside industrial sales representative has not got that approved yet. [...] n MD> Date _ Joselito Cassidy MD Cosigner Signature: Date (if applicable) CC: ~ [facility]06-03-2025 Progress note Author Joselito Cassidy [facility] Note Date/Time October 11, 2024 4:03p m [facility] [address] [place] [address] OFFICE VISIT Date of Service: 10/11/24 MR#: [id number] Acct: [id number] Name: CHELSEA BARRY Rep #: [id number] : 1985 Provider: Dr. Arnie Cassidy MD Age/Sex: 39/M Location[place] [facility] Status: Signed Intake Vital Signs 08/12/24 06:24 [...] and the decisions made by me, Dr. oJselito Cassidy MD 10/11/24 1741. Part of today?s visit was documented by [...] He was contacted by the bone stimulator outside industrial sales representative has not got that approved yet. [...] Cosigner Signature: Date (if applicable) CC: ~ [facility] Work Phone: [phone]) 562-373604-18-2025 Evaluation note* Diagnosis Onset Date Resolution Status Admit Date Closed left ankle fracture acute August 26, [...] ankle fracture acute December 02, 2024 1:04pm [facility] Work Phone: 1([phone]) 351-894804-04-2025 Discharge summary Author Joselito Cassidy [facility] Note Date/Time August 12, 2024 10:2 0am [facility] Medical Records Department [address] [place] [address] Instructions for Home/Discharge Instructions 08/12/24 1017 MR#: [id number] Acct: [id number] Name: CHELSEA BARRY VANDANA Rep #:[id number] : 1985 39 From: Joselito Cassidy MD PCP: Care Physician,No [place] [facility] [place] Instructions Diet Discharge Diet: No restrictions [...] Provider: Care Physician,No Primary Instructions Print Language: Malian Discharge Orders/Prescriptions Prescriptions: New aspirin [Adult Low [...] CC: No Primary Care Physician ~ Signed [facility] Work Phone: [phone] Consult note Author Ariel Velázquez [facility] Note Date/Time August 12, 2024 10:1 5am [facility] Medical Records Department [address] [place] [address] Anesthesia Postop Eval I 08/12/24 1014 MR#: [id number] Acct: [id number] Name: CHELSEA BARRY Rep #:[id number] : 1985 39 From: Ariel Velázquez I I SCAFFOLDER PCP: Care Physician,No Primary Status :REG SDC Y Race: C Location: [place] [address] Anesthesia: Postop Eval I Current Vital Signs [...] Velázquez II, CRNA> Date _ Ariel Velázquez II SCAFFOLDER Cosigner Signature: Date CC: ~ Signed [facility] Work Phone: [phone] Consult note [facility] Medical Records Department [address] [place] [address] Anesthesia Postop Eval II 08/12/24 1050 MR#: [id number] Acct: [id number] Name: CHELSEA BARRY Rep #:[id number] : 1985 39 From: Shama Austin PCP: Care Physician,No Primary Status :REG SDC Y Race: C Location: [place] [address] Anesthesia Postop Eval I Sum Postop Eval Completion status Anesthesia document: Postop Eval 1 completed: Yes Anesthesia Postop Eval I Summary Anesthesia Postop Eval I Summary: Anesthesia Postop Eval I: Assessment Summary Airway patent Yes 08/12/24 10:15 SCAFFOLDER.DBAK Spontaneous unlabored Yes 08/12/24 10:15 SCAFFOLDER.DBAK respirations Mental status Awake,Calm 08/12/24 10:15 SCAFFOLDER.DBAK nausea No 08/12/24 10:15 SCAFFOLDER.DBAK Vomiting No 08/12/24 10:15 SCAFFOLDER.DBAK Anesthesia Postop Eval I: Fluid Summary Crystalloid volume administer 1,600 08/12/24 10:15 SCAFFOLDER.DBAK (ml) Colloids volume administered ( ml) Blood Product volume administered (ml) Total IV fluid infused 1,600 08/12/24 10:15 SCAFFOLDER.DBAK Anesthesia Postop Eval I: Summary Notes Anesthesia Complication No 08/12/24 10:15 SCAFFOLDER.DBAK Anesthesia Complication Comment: Post-operative progress note Anesthesia: Postop Eval II Evaluation Mental status: Awake Pain Level: 1 nausea: No Vomiting: No 08/12/24 1051 a> Date _ Shamaclaudia Lynblakenia Signature: Date CC: ~ Signed [facility]04-04-2025 Discharge summary [facility] Medical Records Department [address] [place] [address] Instructions for Home/Discharge Instructions 08/12/24 1017 MR#: [id number] Acct: [id number] Name: CHELSEA BARRY Rep #:[id number] : 1985 39 From: Joselito Cassidy MD PCP: Care Physician,No [place] :[place] [facility] [place]charge Instructions Diet Discharge Diet: No restrictions [...] Provider: Care Physician,No Primary Instructions Print Language: Malian Discharge Orders/Prescriptions Prescriptions: New aspirin [Adult Low [...] CC: No Primary Care Physician ~ Signed [facility]04-04-2025 Consult note [facility] Medical Records Department [address] [place] [address] Anesthesia Postop Eval I 08/12/24 1014 MR#: [id number] Acct: [id number] Name: CHELSEA BARRY Rep #:[id number] : 1985 39 From: Ariel Barrera CRNA PCP: Care Physician,No Primary Status :REG SDC Y Race: C Location: [place] [address] Anesthesia: Postop Eval I Current Vital Signs [...] Eval 1 completed: Yes 08/12/24 1015 II SCAFFOLDER> Date _ Ariel Velázquez II SCAFFOLDER Cosigner Signature: Date CC: ~ Signed [facility]04-04-2025 Procedure note [facility] Medical Records Department [address] [place] [address] Operative Report 08/12/24 1002 MR#: [id number] Acct: [id number] Name: CHELSEA BARRY Rep #:[id number] : 1985 39 From: Joselito Cassidy MD PCP: Care Physician,No Primary Status :[facility] Location: [place] [address] Problems Associated Problem List Diagnoses (1) Closed left ankle fracture: Procedures Musculoskeletal 20xxx-29xxx: Other Procedure See Report Operative Report (Standard) Operative Information Date of Procedure: 08/12/24 Pre-Operative Diagnosis: L ankle fracture dislocation Post-Operative Diagnosis: same, OCD lesion lateral tibia Surgery/Procedure Performed: L ankle open reduction internal fixation, syndesmosis repair, arthroscopy, debridement, OCD microfracture ornamenter hand: Yes Quantitative Software Engineer: branden Tasks completed by assistant food service manager: Retracting Additional medical assistant float?: No Type of Anesthesia: Block,Regional and General [...] home according today surgery criteria. CPT codes 21026, 09030,?76198, 75810, 82168 Surgical Findings: as above Complications Complications: No Admit VTE Documentation VTE Present on Admission: No VTE Mechan Device Prophylaxis: SCD's VTE Pharm Prophylaxis ordered?: Yes 08/12/24 1015 Cosigner Signature (if applicable): CC: Dr. Joselito Cassidy MD; No Primary Care Physician~ Signed [facility]04-04-2025 Consult note Author Edwin Fry [facility] Note Date/Time August 12, 2024 7:25 am [facility] Medical Records Department [address] [place] [address] Pre-Anesthesia Evaluation 08/12/24 0642 MR#: [id number] Acct: [id number] Name: CHELSEA BARRY Rep #:[id number] : 1985 39 From: dEwin Fry MD PCP: Care Physician,No Primary Status :REG SDC Y Race: C Location: [place] [address]- ASA Classification* ASA Classification ASA Classification: 2 [...] ANKLE Anesthesia History Anesthesia History - director of physician practices: Anesthesia History - director of physician practices Hx Hospitalization No 08/09/24 11:15 Any Problems [...] of surgery: Advil PONV PONV - director of physician practices: PONV - director of physician practices Female No 08/09/24 11:15 HX of Motion [...] 06:24 Respiratory Assessment Respiratory Assessment - director of physician practices: Respiratory Tract Infection Hx - director of physician practices Hx Respiratory Tract Infection No 08/09/24 11:15 STOP Sleep Apnea STOP Sleep Apnea - director of physician practices: STOP Sleep Apnea - director of physician practices Hx Hypertension No 08/09/24 11:15 Hx Sleep [...] Use History Tobacco Use History - director of physician practices: Tobacco Use History - director of physician practices Tobacco Use Smoking Status Former smoker 08/09/24 11:15 Hx Tobacco Use No 08/09/24 11:15 Years Smoking Packs Smoked per Day Smoking Cessation Date was No - quit smoking greater 08/09/24 11:15 within the last 15 years than 15 years ago Hx Smoking Cessation Date Hx Smoking Cessation No 08/09/24 11:15 Counseling Hematologic Medial History Hematologic Hx - director of physician practices: 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 Hx of Blood Transfusion No 08/09/24 11:15 [...] unrespo /Reproduction History /Reproductive History - director of physician practices: /Reproductive Hx- director of physician practices Hx Now No 08/09/24 11:15 Gestational Age [...] MD Cosigner Signature: Date CC: ~ Signed [facility] Work Phone: [phone]) [phone] History and physical note Author Joselito Cassidy [facility] Note Date/Time August 12, 2024 7:04 am [facility] Medical Records Department [address] [place] [address] History & Physical Exam 08/12/24 0703 MR#: [id number] Acct: [id number] Name: CHELSEA BARRY Rep #:[id number] : 1985 39 From: Joselito Cassidy MD PCP: Care Physician,No [place] [facility] [place]: [place] [address] HPI - General HPI Narrative CHELSEA BARRY, is a 39 M who presents for left ankle open reduction internal fixation, syndesmosis fixation, ankle arthroscopy. no changes to h and p. ok to proceed. left ankle marked. rab, post op instructions, narcotic counselling. ok for block. MR#: [id number] Acct: [id number] Name: CHELSEA BARRY Rep #: [id number] : 1985 Provider: Dr. Joselito Cassidy MD Age/Sex: 39/M [place] [facility] Status: Signed Intake Vital Signs 08/07/2519:13 08/09/2507:02 [...] within the last 2 hours. Supplemental Info [facility] Imaging Services [address] [place] [address] Ankle 2 Views MR#: [id number] Acct: [id number] Name: CHELSEA BARRY Rep #: [id number] : 1985 M 39 From: Ankita Flores MD PCP: Care Physician,No Primary Status: REG ER Study: Ankle 2 Views Date of Exam: 08/06/24 Exam# [id number] Ordering Dr: Branden Tracy MD PROCEDURE: ANKLE 2 VIEWS 08/06/2024 [...] I ANKLE: foot warm well perfused, splinted. [facility] Medical History Wears glasses Asthma Former [...] Cassidy MD; No Primary Care Physician~ Signed [facility] Work Phone: 1([phone]) 540-732204-04-2025 Consult note [facility] Medical Records Department [address] [place] [address] Pre-Anesthesia Evaluation 08/12/24 0642 MR#: [id number] Acct: [id number] Name: CHELSEA BARRY Rep #:[id number] : 1985 39 From: Edwin Fry MD PCP: Care Physician,No [place] [facility] [place] Race: C Location: [place] [address] ASA Classification* ASA Classification ASA Classification: 2 [...] ANKLE Anesthesia History Anesthesia History - director of physician practices: Anesthesia History - director of physician practices Hx Hospitalization No 08/09/24 11:15 Any Problems [...] of surgery: Advil PONV PONV - director of physician practices: PONV - director of physician practices Female No 08/09/24 11:15 HX of Motion [...] 06:24 Respiratory Assessment Respiratory Assessment - director of physician practices: Respiratory Tract Infection Hx - director of physician practices Hx Respiratory Tract Infection No 08/09/24 11:15 STOP Sleep Apnea STOP Sleep Apnea - director of physician practices: STOP Sleep Apnea - director of physician practices Hx Hypertension No 08/09/24 11:15 Hx Sleep [...] Use History Tobacco Use History - director of physician practices: Tobacco Use History - director of physician practices Tobacco Use Smoking Status Former smoker 08/09/24 11:15 Hx Tobacco Use No 08/09/24 11:15 Years Smoking Packs Smoked per Day Smoking Cessation Date was No - quit smoking greater 08/09/24 11:15 within the last 15 years than 15 years ago Hx Smoking Cessation Date Hx Smoking Cessation No 08/09/24 11:15 Counseling Hematologic Medial History Hematologic Hx - director of physician practices: 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 Hx of Blood Transfusion No 08/09/24 11:15 [...] unrespo /Reproduction History /Reproductive History - director of physician practices: /Reproductive Hx- director of physician practices Hx Now No 08/09/24 11:15 Gestational Age [...] MD Cosigner Signature: Date CC: ~ Signed [facility]04-04-2025 History and physical note [facility] Medical Records Department [address] [place] [address] History & Physical Exam 08/12/24 0703 MR#: [id number] Acct: [id number] Name: CHELSEA BARRY Rep #:[id number] : 1985 39 From: Joselito Cassidy MD PCP: Care Physician,No Primary Status :[facility] Location: [place] [address] HPI - General HPI Narrative CHELSEA BARRY, is a 39 M who presents for left ankle open reduction internal fixation, syndesmosis fixation, ankle arthroscopy. no changes to h and p. ok to proceed. left ankle marked. rab, post op instructions, narcotic counselling. ok for block. MR#: [id number] Acct: [id number] Name: CHELSEA BARRY Rep #: [id number] : 1985 Provider: Dr.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
[2024-12-24 10:31] LABS: 24HR. Urine Creatinine 2419.2 mg/24 hr (1040.0-2350.0); Sodium 24 HR UR 243 mmol/24h (40-220); Urine Chloride / 24 Hours 218 mmol/24h (110-250); Urine Potassium/ 24 Hours 76.0 mmol/24h (25-125)
[2024-12-24 12:10] LABS: Calcium Urine pH Range 2
[2024-12-24 12:12] LABS: (24 HR) Urine Calcium 464.4 mg/24 HR (100.0-300.0)
[2024-12-25 10:08] LABS: Uric Acid, 24Ur 793.8 mg/24 hr (197.2-1078.7); Uric Acid, Ur 29.4 mg/dL (Not Estab.)
== END | disposition home or self-care (01) ==
LOC: LAB 07:35 → LABSPEC 07:36
PROVIDERS: Referring Provider Urology; Visit Provider Urology
DX: N20.1 Calculus of ureter (principal)
CPT/HCPCS: 81050; 82340; 82436; 82570; 84133; 84300; 84560

== ENCOUNTER 2024-12-30 13:00 | Outpatient (RCR) | payer OTHER, SELFPAY ==
--- NOTE | 2024-09-01 17:13 | HP.PTEVAL_ITS ---
Patient's Visit Information Visit Information Visit Information: CHELSEA BARRY is a 39 year old M referred to Physical Therapy by Dr. Joselito Cassidy MD with a diagnosis of closed L ankle fx, ORIF 08/12. Date of Evaluation: 09/01/24 Physical Therapist: Ulises Alegria, DPT, OCS, CSCS Visit Plan Frequency: 2x /Week Duration: 2 Months Plan: 2x/week for 4-8 weeks Pt is NWB L with boot until f/u mid September with Ange) IE HEP: AROM L ankle 20x, seated heel toe raises x20, towel toe curls x 50, wall gastroc stretch 5sec x 10 all 3x/day with pics and HO Please treat until Mid September with STM to L foot and ankle for lymph/edema, PROM and mobs to L ankle for ROM, TB NWB strength L ankle. Once releaased, can progress to WB strength/proprioception and gait training. ice as needed. Subjective Subjective: Rolled side by side onto ankle and pinned L ankle. 4 weeks ago. Surgery was 08/12/24 had ORIF. Boot and NWB since, boot off at home. Works from home on computer and doing that job, off a little to pain meds. 3 weeks more until Mid September NWB L. Not painful in last week, maybe occasional pinch. Medial ankle up to 07/18. Sleep is OK for 5-6 hours then needs more tylenol. No boot at night. No exercises Basic ADLs OK, shower and dress OK. Incision closed up. using crutches and NWB or scooter. 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 Pain R medial ankle: Pain Intensity (Out of 10): 0 Pain Intensity Range: 0 and 3 Objective Objective: NWB L on crutches with boot on into PT. dons and doffs boot I, transfers chair and bed I. Ankle is wrapped and pt is without concerns and says healed up well. AROM L ankle -20 DF, 35 PF, 4 inv, 8 eversion, PROM only slightly better and limited by discomfort and tightness. Swelling is mild ot moderate today in L foot and ankle with palpable pulse pedally. sensation LE WNL to gross light touch B. strength 4- L ankle DF, PF, 3+ inv and eversion. R ankle is 5/5 strength adn 58 PF, 5 DF, 30 inv and 20 eversion. 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 Rehabilitation Potential: Good Anticipated Interventions Patient/Client Instruction: Educate patient on: Condition and Risk Factors For the Purpose of:: To decrease pain, To increase ROM, To improve nutrient delivery to tissue, To improve muscle performance and motor function, To increase tolerance to activity/condition/position and To improve gait and locomotor functions Therapeutic Exercise to Include: Strength training, Postural training, Flexibilty training, Gait and locomotor training, Passive ROM and Active ROM For the Purpose of:: To decrease pain, To increase ROM, To improve nutrient delivery to tissue, To increase tolerance to activity/condition/position and To improve gait and locomotor functions Manual Therapy Techniques to Include: Mobilization, Passive ROM and Soft tissue mobilization For the Purpose of:: To decrease pain, To increase ROM, To improve nutrient delivery to tissue, To improve muscle performance and motor function and To increase tolerance to activity/condition/position Cryotherapy (ice pack, ice massage): Yes For the Purpose of:: To decrease swelling/inflammation Text: Thank you for the opportunity to evaluate your patient. For Medicare and Medicare HMO plans, please review the plan of care and approve it. It will need to be FAXED BACK to us at [phone] for Medicare purposes. For Medicare only, by signing this I certify the plan of care. Please let me know if there are questions or concerns regarding this plan of care. Physician Signature: Date:
--- NOTE | 2024-12-05 15:06 | HP.PTREVAL ---
Re-Evaluation Intro: Dr. Jsoelito Cassidy MD, It has been my pleasure to treat CHELSEA BARRY over the last 18 visits for Closed L ankle fx, ORIF 08/12. Please see the progress note below for an update on the physical therapy plan of care! Subjective Subjective: Saw doctor and saw some healing on CT scan. Cleared for WBAT without boot. Pain is good when not on it. 05/20 ambulation HEP : band and stretching. Walks 6000 steps a day lately. Limping a little bit at most times. 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 Objective Objective/Function: Doc note says pt is WBAT and to wean boot. L ankle strength 4= DF, 4 PF, inveersion 4, everesion painful and 3+. AROM L ankle 3 DF, 35 PF, 20 inversion and 10 eversion , still limitd vs R but funcitonal. SLS L painful today even with some support. steps are reciprocal albeit slow up and descending requires two rails due to pain L ankle with WB down to R. Walking is slow today but no boot on and slightly antalgic avoiding push off on L and short R step length but willing and not overly painful. rosalba Progressing nicely considering slow healing and just released to FWB without boot 3 days ago. Plan Plan Plan: NEW POC: 2x/week for 4-6 weeks as needed. Please work on gait weaning boot to normal pattern, steps particularly down, proprioception and WB strength to tolerance L and is WBAT without boot now, Please get on gym machines for total body and work toward an [employer] program once able and tolerable. New goal set based on new POC and slow healing for 4-6 more weeks and fair prognosis. Balance/Gait/Functional tests Balance/Special Test Scores Lower Extremity Functional Score: 49 Goals Goals Goal 1:: ST: 3 weeks AROM 3 DF adn 50 PF adnd 25 inv and 20 eversion L ankle without pain Goal Time Frame: 2-4 Weeks Goal Progress: Progressing Goal 2:: walk community adn up and down steps with one railing without deficits Goal Time Frame: 4-6 Weeks Goal Progress: NEW GOAL Goal 3:: LT: Full symmetrical AROM and strength testing ankles Goal Time Frame: 4-6 Weeks Goal Progress: Progressing Goal 4:: walk normally as allowed by doctor without pain or deviaitons Goal Time Frame: 4-6 Weeks Goal Progress: WBAT, appropriate Goal 5:: climb steps normal and reciprocal Goal Time Frame: 4-6 Weeks Goal Progress: appropriate 4 more 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 Goal Time Frame: 6-8 Weeks Goal Progress: 4-6 more weeks Anticipated Interventions Anticipated Interventions Patient/Client Instruction: Educate patient on: Condition and Risk Factors For the Purpose of:: To decrease pain, To increase ROM, To improve nutrient delivery to tissue, To improve muscle performance and motor function, To increase tolerance to activity/condition/position and To improve gait and locomotor functions Therapeutic Exercise to Include: Strength training, Postural training, Flexibilty training, Gait and locomotor training, Passive ROM and Active ROM For the Purpose of:: To decrease pain, To increase ROM, To improve nutrient delivery to tissue, To increase tolerance to activity/condition/position and To improve gait and locomotor functions Manual Therapy Techniques to Include: Mobilization, Passive ROM and Soft tissue mobilization For the Purpose of:: To decrease pain, To increase ROM, To improve nutrient delivery to tissue, To improve muscle performance and motor function and To increase tolerance to activity/condition/position Cryotherapy (ice pack, ice massage): Yes For the Purpose of:: To decrease swelling/inflammation Re-Evaluation Ending Re-evaluation ending: Please do not hesitate to contact me at [phone] by phone or if you have questions or concerns regarding this new plan of care! Sincerely, Ulises Alegria, DPT, OCS, CSCS
--- NOTE | 2024-12-30 14:21 | HP.PTREVAL ---
Re-Evaluation Intro: Dr. Joselito Cassidy MD, It has been my pleasure to treat CHELSEA BARRY over the last 25 visits for Closed L ankle fx, ORIF 08/12. Please see the progress note below for an update on the physical therapy plan of care! Subjective Subjective: end february to doctor. Ankle feels pretty good, coming down steps is still tight. No real pain unless on it a long time Sleep is OK. Doing soccer practice walking and demonstrating. Working is not a problem. Activities: Doing what needs to do. HEP: band ROM and streetching and band exercises. Will get [employer] fitness membership and start up. Doing SLS also. last 15% is running adn jumping. Objective Objective/Function: weakness obvious L PF avoiding push off at end of stance. 3 degrees DF RM L still effects steps mildly descending with L. Otherwise funciton is good adn feels like he can work on these at home. descnds steps onto L heel instead of forefoot and avoids Df desecnding with L. Plan Plan Plan: f/u 3 -4 weeks then a month later to ensure progress with L PF strength, push off on gait and steps. 80# PF seated today L. Goal is unmovable PF and L SL heel raise to help with push off in gait. [place] 2 is steps reciprocal with one rail without deficits. Fair prognosis with HEP. Balance/Gait/Functional tests Balance/Special Test Scores Lower Extremity Functional Score: 60 Goals Goals Goal 1:: ST: 3 weeks AROM 3 DF adn 50 PF adnd 25 inv and 20 eversion L ankle without pain Goal Time Frame: 2-4 Weeks Goal Progress: funcitonal Goal 2:: walk community adn up and down steps with one railing without deficits Goal Time Frame: 4-6 Weeks Goal Progress: Progressing, approp Goal 3:: LT: Full symmetrical AROM and strength testing ankles Goal Time Frame: 4-6 Weeks Goal Progress: Not Progressing Goal 4:: walk normally as allowed by doctor without pain or deviaitons Goal Time Frame: 4-6 Weeks Goal Progress: avoids push off.weak Goal 5:: climb steps normal and reciprocal Goal Time Frame: 4-6 Weeks Goal Progress: Goal Met 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 Anticipated Interventions Anticipated Interventions Patient/Client Instruction: Educate patient on: Condition and Risk Factors For the Purpose of:: To decrease pain, To increase ROM, To improve nutrient delivery to tissue, To improve muscle performance and motor function, To increase tolerance to activity/condition/position and To improve gait and locomotor functions Therapeutic Exercise to Include: Strength training, Postural training, Flexibilty training, Gait and locomotor training, Passive ROM and Active ROM For the Purpose of:: To decrease pain, To increase ROM, To improve nutrient delivery to tissue, To increase tolerance to activity/condition/position and To improve gait and locomotor functions Manual Therapy Techniques to Include: Mobilization, Passive ROM and Soft tissue mobilization For the Purpose of:: To decrease pain, To increase ROM, To improve nutrient delivery to tissue, To improve muscle performance and motor function and To increase tolerance to activity/condition/position Cryotherapy (ice pack, ice massage): Yes For the Purpose of:: To decrease swelling/inflammation Re-Evaluation Ending Re-evaluation ending: Please do not hesitate to contact me at [phone] by phone or if you have questions or concerns regarding this new plan of care! Sincerely, Ulises Alegria, DPT, OCS, CSCS
--- NOTE | 2025-02-28 12:04 | HP.PTDCNRP_ITS ---
Patient Information Patient Information: CHELSEA BARRY was seen in my office for initial evaluation on 09/01/24. The following Plan of Care was established for this patient: POC Established Initial Frequency: 2x /Week Initial Duration: 2 Months Anticipated Interventions Patient/Client Instruction: Educate patient on: Condition and Risk Factors For the Purpose of:: To decrease pain, To increase ROM, To improve nutrient delivery to tissue, To improve muscle performance and motor function, To increase tolerance to activity/condition/position and To improve gait and lo comotor functions Therapeutic Exercise to Include: Strength training, Postural training, Flexibilty training, Gait and locomotor training, Passive ROM and Active ROM For the Purpose of:: To decrease pain, To increase ROM, To improve nutrient delivery to tissue, To increase tolerance to activity/condition/position and To improve gait and locomotor functions Manual Therapy Techniques to Include: Mobilization, Passive ROM and Soft tissue mobilization For the Purpose of:: To decrease pain, To increase ROM, To improve nutrient delivery to tissue, To improve muscle performance and motor function and To increase tolerance to activity/condition/position Cryotherapy (ice pack, ice massage): Yes For the Purpose of:: To decrease swelling/inflammation Last Seen Last Seen: This patient was last seen in our office 12/30/24. Pertinent comments regarding their Physical therapy will appear below: Pt seen 25 visits of POC and was 75+% better. He was to cotninue strenghtening via HEP and f/u after last recheck but did not schedule or attend. At this point, it has been over 2 months and I will discontinue from my care. At this point I will be discontinuing this patient from physical therapy. I would be happy to see this patient again in the future if found appropriate by the physician. Thank you! Ulises Alegria, DPT, OCS, CSCS Balance/Gait/Functional tests Balance/Special Test Scores Lower Extremity Functional Score: 60
== END 2024-12-30 19:00 | disposition home or self-care (01) ==
LOC: PT 13:00
PROVIDERS: Referring Provider Orthopaedic Surgery Sports Medicine; Visit Provider Orthopaedic Surgery Sports Medicine
DX: S82.892D Other fracture of left lower leg, subsequent encounter for closed fracture with routine healing (principal)
CPT/HCPCS: 97110; 97140; 97161; 97164; 97530